=== PATIENT | female | born 1945 | race Caucasian/White ===

== ENCOUNTER → 2017-08-07 | Day surgery (SDC) | payer MEDICARE, BC ==
[2017-08-06 17:24] VITALS: BMI 26.9
[~2017-08-07] MED LIST: Diprivan 20 ML ONE; Propofol 200 MG/20 ML VIAL ONE
[2017-08-07 10:58] LABS: #Basophils 0.1 thou/uL (0.0-0.2); #Eosinphils 0.8 thou/uL (0.0-0.7); #Monocytes 0.5 thou/uL (0.11-0.59); #Neutrophils 4.7 thou/uL (1.40-6.50); %Eosinophils 9.6 % (0.0-10.0); %Lymphocytes 24.7 % (21.0-51.0); %Monocytes 5.6 % (0.0-10.0); Hematocrit 46.3 % (36.0-47.0); Mean Platelet Volume 8.3 fL (7.4-10.4); Red Blood Cell (RBC) Count 5.34 mill/uL (4.20-5.40)
[2017-08-07 11:06] LABS: PTT 33.5 SEC (22.9-36.1); Prothrombin Time 16.8 SEC (12.0-14.7)
[2017-08-07 11:32] LABS: Anion Gap 13 mmol/L (10-20); BUN (Urea Nitrogen) 13 mg/dL (9.8-20.1); Calc. Creatinine Clearance 64 mL/min (70-130); Calcium 9.9 mg/dL (7.8-10.44); Carbon Dioxide 27 mmol/L (23-31); Chloride 104 mmol/L (98-107); Estimated GFR-MDRD 60
--- NOTE | 2017-08-07 15:31 | OP ---
DATE OF PROCEDURE: 08/07/2017 CARDIOVERSION REPORT REFERRING PHYSICIAN: Dr. Adams. REASON FOR PROCEDURE: Mrs. Barreto is here with recent pulmonary venous isolation procedure on 2016. She developed atypical atrial flutter. She is undergoing a cardioversion procedure, d emonstrates no clots in the left atrial appendage. PROCEDURE: The patient received propofol for conscious sedation by Anesthesia specialist. After ad equate level of sedation achieved, a synchronized 50 joule shock promptly converted the patient back to sinus rhythm. CONCLUSION: Successful cardioversion. PLAN: Routine followup. Continue anticoagulation with Eliquis.
--- NOTE | 2017-08-07 21:11 | ECHO ---
DATE OF SERVICE: 08/07/17 REFERRING PHYSICIAN: Breanna Adams M.D. REASON FOR PROCEDURE: The patient is here with atrial flutter versus atrial fibrillation. She was set up for a MARC guided cardioversion. She had a prior pulmonary venous isolation procedure on 06/05/2017, now with recurr ent atrial flutter. She has had interrupted Eliquis and the performing MARC to rule out clots. PROCEDURE: The patient received deep sedation by Anesthesia specialist. After adequate level of sedation achie anant the standard transvenous procedure echocardiogram probe was passed into the esophagus without d ifficulty. The patient tolerated the procedure well, no complications noted. RESULTS: Left atrium is mildly enlarged. Left atrial appendage is well visualized and contains no clots. Lef t appendage velocity up to 50 cm per second. Four out of four pulmonary veins were visualized withou t stenosis. The mitral valve has mild to moderate regurgitation. The interatrial septum is free of defect. Right-sided chambers nondilated. Left ventricular systolic function is normal. LV size is normal. Wall thickness normal. The pericardial space without effusion. The aortic valve has three leaflets without regurgitation or stenosis and appears to be normal. Tricuspid valve without significant regurgitation. Visualized portion of the ascending and descendin g aorta without aneurysm, dissection or atheroma. CONCLUSION: 1. No intracardiac clots. 2. Mild to moderate MR. 3. Normal left ventricular systolic function. PLAN: Proceed with cardioversion.
== END ==
LOC: SDC 09:17
PROVIDERS: ATTEND Internal Medicine Cardiovascular Disease
DX: I48.1 Persistent atrial fibrillation (principal); I48.4 Atypical atrial flutter; E03.9 Hypothyroidism, unspecified; I10 Essential (primary) hypertension; F32.9 Major depressive disorder, single episode, unspecified; Z79.01 Long term (current) use of anticoagulants; Z79.899 Other long term (current) drug therapy; Z88.6 Allergy status to analgesic agent; Z90.89 Acquired absence of other organs; Z90.710 Acquired absence of both cervix and uterus; Z98.890 Other specified postprocedural states
CPT/HCPCS: 36415; 80048; 85025; 85610; 85730; 92960; 93005; 93010; 93312; J2704

== ENCOUNTER 2017-10-06 19:34 | Inpatient (IN) | payer MEDICARE, BC ==
[2017-10-06] MEDS ORDERED: Adenosine 6 MG/2 ML VIAL ONE ×2 (19:57)
[2017-10-06 20:04] LABS: #Basophils 0.1 thou/uL (0.0-0.2); #Eosinphils 1.3 thou/uL (0.0-0.7); #Lymphocytes 2.9 thou/uL (1.20-3.40); #Monocytes 0.5 thou/uL (0.11-0.59); #Neutrophils 4.3 thou/uL (1.40-6.50); %Basophils 1.1 % (0.0-1.0); %Monocytes 5.5 % (0.0-10.0); Mean Platelet Volume 8.4 fL (7.4-10.4); Red Blood Cell (RBC) Count 4.83 mill/uL (4.20-5.40); White Blood Cell (WBC) Count 8.9 thou/uL (4.8-10.8)
[2017-10-06] MEDS ORDERED: Diltiazem HCl 125 MG, Admixture Fee 1 EACH in Sodium Chloride 0.9% 100 ML SLOW IVP SCH (20:15)
[2017-10-06 20:22] LABS: ALT (SGPT) 12 U/L (8-55); AST (SGOT) 15 U/L (5-34); Alkaline Phosphatase 107 U/L (40-150); Anion Gap 14 mmol/L (10-20); BUN (Urea Nitrogen) 11 mg/dL (9.8-20.1); Bilirubin, Total 0.2 mg/dL (0.2-1.2); Calc. Creatinine Clearance 0 mL/min (70-130); Calcium 9.7 mg/dL (7.8-10.44); Carbon Dioxide 24 mmol/L (23-31); Chloride 108 mmol/L (98-107); Estimated GFR-MDRD 56; Globulin 3.6 g/dL (2.4-3.5); Protein, Total 8.1 g/dL (6.0-8.3)
--- NOTE | 2017-10-06 20:32 | RAD ---
CHEST ONE VIEW: History: Chest pain. Shortness of breath. Comparison: 10-26-16, 12-25-16 FINDINGS: Mild prominence of the pulmonary vasculature. No focal airspace consolidation, pneumothorax or effusi on. Mild scarring in the lung apices. Unchanged appearance of sclerosis of the left humeral neck. IMPRESSION: No acute intrathoracic abnormality. No significant change. POS: [facility]
[2017-10-06] MEDS ORDERED: Nitroglycerin 2% Ointment 1 INCH/1 GM Packet ONE (20:38)
[2017-10-06 22:17] LABS: PTT 31.9 SEC (22.9-36.1); Prothrombin Time 13.8 SEC (12.0-14.7)
--- NOTE | 2017-10-06 23:55 | PDOC.EVN ---
Event Note - Event Note Event Note: [id number] H&P Dictated 1. Chest pain 2. AFIB 3. HTN
[2017-10-07] MEDS ORDERED: Ondansetron HCl/PF 4 MG/2 ML Vial IVP PRN (00:05)
[2017-10-07] MEDS ORDERED: Sodium Chloride 0.9% 1,000 ML IV SCH (00:15)
--- NOTE | 2017-10-07 00:33 | HP ---
DATE OF ADMISSION: 10/06/2017 CHIEF COMPLAINT: Chest pain. HISTORY OF PRESENT ILLNESS: Patient is a 72-year-old female with past medical history of atrial fibr illation, hypertension, hypothyroidism, continue complaining of chest pain. Patient says she started having chest pain today, substernal tightness kind, denies any radiation. Denies any dizziness. De nies any lightheadedness. Patient said she had a cardiac ablation done on 09/17 in [place]. Chest pa in is mildly in intensity. Denies any fever, denies any chills, denies any cough. Patient took puls e at home, heart rate was around 155. Denies any nausea, denies any vomiting, denies any dizziness, denies lightheadedness. Her symptoms persisted so she came to the ER. Upon ER arrival, patient was found to be in atrial fibrillation with RVR, so patient was given IV Cardizem push and started on Car dizem drip. Patient denies any other complaints at this time. PAST MEDICAL HISTORY: As per the HPI. PAST SURGICAL HISTORY: Cardiac ablation x2, cardioversion. SOCIAL HISTORY: Denies smoking, denies alcohol, denies any drugs. FAMILY HISTORY: Denies any heart problems. MEDICATIONS: Reviewed. ALLERGIES: No known drug allergies. REVIEW OF SYSTEMS: Constitutional: Denies any fever, denies any chills. Eyes: Denies any vision p roblems. Ears: Denies any hearing loss. Neck: Denies any neck pain. Cardiovascular: Positive fo r chest pain. Respiratory: Denies any cough, denies any sputum production. Gastrointestinal: Delano es nausea, vomiting. Integumentary: Denies any rash. Musculoskeletal: Denies any joint deformities. All other review of systems are reviewed and are neg ative. PHYSICAL EXAMINATION: CONSTITUTIONAL/VITAL SIGNS: At the time of H and P performed, blood pressure is 139/75, heart rate 9 8.7, pulse oximetry 100%. GENERAL: The patient appears comfortable. HEENT: Pupils are equal, round, and reactive. Anterior nares patent. Nose normal. Ears normal. T eeth intact. Tongue is moist. NECK: Supple. No JVD. CARDIOVASCULAR: S1 and S2 present. Regular rate and rhythm. No murmurs, no rubs, no gallops. RESPIRATORY SYSTEM: No wheezing, no rhonchi. Breath sounds bilaterally. GASTROINTESTINAL: Abdomen is soft, nontender, no guarding, no organomegaly, no masses felt. GENITOURINARY: No suprapubic tenderness. INTEGUMENTARY: No rashes seen. CRANIAL NERVE SYSTEM: Cranial nerves intact. Follows commands. Strength intact. Sensory intact. LABORATORY DATA: At the time of H&P performed, white count 8.9, hemoglobin 14.3, platelet count is 3 14. PT 13.8, INR 1.1. BMP showed sodium 142, potassium 4.1, chloride 108, CO2 is 24, BUN of 7, crea tinine 1.97, calcium 9.7. ASSESSMENT AND PLAN: Patient is 72-year-old female: 1. Chest pain, need to rule out cardiac etiology. Plan to check cardiac enzymes. Plan to consult C ardiology to evaluate the patient. 2. Atrial fibrillation with rapid ventricular response. Continue Cardizem drip. Plan to consult Ca rdiology to evaluate the patient. We will monitor heart rate closely. We will check TSH and BMP and mag level in the a.m. 3. History of hypertension. Continue home blood pressure medications. 4. History of hypothyroidism. Continue Synthroid. Case was discussed in detail with the patient.
[2017-10-07 03:14] LABS: #Basophils 0.1 thou/uL (0.0-0.2); #Eosinphils 0.9 thou/uL (0.0-0.7); #Lymphocytes 2.3 thou/uL (1.20-3.40); #Monocytes 0.4 thou/uL (0.11-0.59); #Neutrophils 3.8 thou/uL (1.40-6.50); %Basophils 0.7 % (0.0-1.0); %Eosinophils 12.4 % (0.0-10.0); %Lymphocytes 30.6 % (21.0-51.0); %Monocytes 5.3 % (0.0-10.0); Mean Platelet Volume 8.2 fL (7.4-10.4); Red Blood Cell (RBC) Count 4.26 mill/uL (4.20-5.40); White Blood Cell (WBC) Count 7.4 thou/uL (4.8-10.8)
[2017-10-07 03:35] LABS: ALT (SGPT) 10 U/L (8-55); AST (SGOT) 11 U/L (5-34); Alkaline Phosphatase 83 U/L (40-150); Anion Gap 11 mmol/L (10-20); BUN (Urea Nitrogen) 12 mg/dL (9.8-20.1); Bilirubin, Total 0.2 mg/dL (0.2-1.2); Calc. Creatinine Clearance 76 mL/min (70-130); Calcium 9.1 mg/dL (7.8-10.44); Carbon Dioxide 26 mmol/L (23-31); Chloride 110 mmol/L (98-107); Estimated GFR-MDRD 70; Globulin 2.5 g/dL (2.4-3.5); Protein, Total 6.3 g/dL (6.0-8.3)
[2017-10-07 03:38] LABS: Troponin I Less than 0.010 ng/mL (< 0.028)
[2017-10-07 03:39] VITALS: BMI 28.1
[2017-10-07] MEDS: Acetaminophen 325 MG TAB PO PRN ×2 (06:00→20:33)
[2017-10-07] MEDS: Levothyroxine Sodium 150 MCG TAB PO SCH (06:00)
[2017-10-07] MEDS: Apixaban 5 MG TAB PO SCH ×2 (08:25→19:57)
[2017-10-07] MEDS: Amlodipine 5 MG TAB PO SCH (08:25)
[2017-10-07] MEDS ORDERED: Famotidine 20 MG TAB PO SCH (09:00)
--- NOTE | 2017-10-07 09:57 | PDOC.PN ---
- Subjective Encounter Start Date: 10/07/17 Encounter Start Time: 07:00 Pt seen for followup re: a. flutter/ a. fib. Feels better. Denies chest pain, nausea or vomiting. - Objective MAR Reviewed: Yes Vital Signs & Weight: Vital Signs (12 hours) Temp Pulse Resp Pulse Ox 10/07/17 08:00 97.5 F L 10/07/17 07:31 97.5 F L 96 18 97 10/07/17 00:30 98.7 F 95 18 97 10/07/17 00:10 98.7 F Weight Weight 169 lb 5.04 oz Most Recent Monitor Data Heart Rate from ECG 95 NIBP 123/78 NIBP BP-Mean 111 Respiration from ECG 17 SpO2 95 I&O: 10/06/17 10/07/17 10/08/17 06:59 06:59 06:59 Intake Total 425 225 Output Total 950 975 Balance -525 -750 Result Diagrams: 10/07/17 03:07 10/07/17 03:07 Phys Exam - Physical Examination Constitutional: NAD HEENT: PERRLA, moist MMs, sclera anicteric, oral pharynx no lesions Neck: no nodes, no JVD, supple, full ROM Respiratory: no wheezing, no rales, no rhonchi, clear to auscultation bilateral Cardiovascular: no rub, irregular S1, S2 heard Gastrointestinal: soft, non-tender, no distention, positive bowel sounds Musculoskeletal: pulses present Neurological: moves all 4 limbs Lymphatic: no nodes Psychiatric: normal affect, A&O x 3 Skin: no rash, normal turgor, cap refill <2 seconds Dx/Plan (1) Atrial flutter Code(s): I48.92 - UNSPECIFIED ATRIAL FLUTTER Status: Acute (2) HTN (hypertension) Code(s): I10 - ESSENTIAL (PRIMARY) HYPERTENSION Status: Chronic (3) Hypothyroidism Code(s): E03.9 - HYPOTHYROIDISM, UNSPECIFIED Status: Chronic Qualifiers: 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 Continue cardizem drip, await cardiology input. Continue apixaban. Monitor vital signs, titrate antihypertensives as needed. Continue thyroid replacement. Review of Systems - Review of Systems Constitutional: negative: Fever, Chills, Sweats, Weakness, Malaise Respiratory: negative: Cough, Dry, Shortness of Breath, Hemoptysis, SOB with Excertion, Pleuritic Pain, Sputum, Wheezing Cardiovascular: negative: Chest Pain, Palpitations, Orthopnea, Paroxysmal Noc. Dyspnea, Edema, Light Headedness Gastrointestinal: negative: Nausea, Vomiting, Abdominal Pain, Diarrhea, Constipation, Melena, Hematochezia Genitourinary: negative: Dysuria, Frequency, Incontinence, Hematuria, Retention - Medications/Allergies Allergies/Adverse Reactions: Allergies Allergy/AdvReac Type Severity Reaction Status Date / Time aspirin AdvReac Severe Anaphylaxis Verified 10/07/17 00:39 almond AdvReac Verified 10/07/17 00:39 peanut AdvReac Verified 10/07/17 00:39 Medications: Current Medications Acetaminophen (Tylenol) 650 mg PO Q4H PRN PRN Reason: Headache/Fever or Pain Last Admin: 10/07/17 06:00 Dose: 650 mg Amlodipine Besylate (Norvasc) 5 mg PO DAILY [facility] Last Admin: 10/07/17 08:25 Dose: 5 mg Apixaban (Eliquis) 5 mg PO BID [facility] Last Admin: 10/07/17 08:25 Dose: 5 mg Famotidine (Pepcid) 20 mg PO Q12HR [facility] Last Admin: 10/07/17 08:25 Dose: 20 mg Diltiazem HCl 125 mg/ Sodium (Chloride) 125 mls @ 5 mls/hr IVPB INF VICENTE; 5 MG/ HR PRN Reason: Protocol Sodium Chloride (Normal Saline 0.9%) 1,000 mls @ 75 mls/hr IV .[id number] [facility] Last Admin: 10/07/17 01:38 Dose: 1,000 mls Levothyroxine Sodium (Synthroid) 150 mcg PO 0600 [facility] Last Admin: 10/07/17 06:00 Dose: 150 mcg Ondansetron HCl (Zofran) 4 mg IVP Q6H PRN PRN Reason: Nausea/Vomiting
[2017-10-07] MEDS ORDERED: Furosemide 20 MG/2 ML VIAL SLOW IVP SCH (10:30)
--- NOTE | 2017-10-07 10:53 | CON ---
DATE OF CONSULTATION: 10/07/2017 SERVICE: Pulmonary Medicine REASON FOR CONSULTATION: Respiratory failure. HISTORY OF PRESENT ILLNESS: The patient is a 72-year-old white female with past medical history sign ificant for paroxysmal atrial fibrillation. She has had 2 separate ablations. She knows when her sy mptoms come on. She had abrupt onset of symptoms when she was at home with shortness of breath and c hest discomfort. She presented to the Emergency Department and was found to be in atrial fibrillatio n with RVR. After establishing rate control, her chest pain and difficulty breathing resolved. She currently denies any fevers, chills, nausea, vomiting, shortness of breath or chest discomfort. She did have wheezing. This was worked up previously and she does not have any COPD. This is more cardi ac wheeze associated with a little bit of volume overload. Otherwise, she has returned to her usual state of health overnight. She is on diltiazem drip and she has actually returned to a regular rhyth m. PAST MEDICAL HISTORY: 1. Paroxysmal atrial fibrillation. 2. Hypertension. 3. Dyslipidemia. 4. Hypothyroidism. PAST SURGICAL HISTORY: 1. Cardiac ablation x2. 2. Cardioversion. SOCIAL HISTORY: Negative for alcohol, tobacco or illicit drug use. She denies any exposure to chemi cals, asbestos or tuberculosis. FAMILY HISTORY: Noncontributory. ALLERGIES: No known drug allergies. MEDICATIONS LIST: A list of her inpatient medications were reviewed. No specific updates were made at this time. REVIEW OF SYSTEMS: General, head, ears, eyes, nose, throat, cardiovascular, respiratory, GI, , mus culoskeletal, neurologic and skin is negative except as mentioned in the HPI. PHYSICAL EXAMINATION: VITAL SIGNS: Afebrile, pulse 97, blood pressure 141/89, respirations 17, saturation 95% on room air. GENERAL: The patient is awake, alert, in no apparent distress. LUNGS: Excellent air entry. The dependent expiratory wheezing is present. I also hear some very fi ne crackles. HEART: Normal rate. Regular at this time. ABDOMEN: Soft, nontender, nondistended, bowel sounds positive. MUSCULOSKELETAL: No cyanosis or clubbing. There is trace pitting in the bilateral lower extremities . NEUROLOGIC: Grossly nonfocal. LABORATORY: WBC 7.4, hemoglobin 12.3, platelets 262,000. INR 1.1. Basic metabolic profile, liver f unction studies are unremarkable. Cardiac enzymes are negative x3. IMAGING: Chest x-ray demonstrates no acute cardiopulmonary abnormality. There is no significant marvin nge compared to prior. ASSESSMENT: 1. Atrial fibrillation with rapid ventricular response, currently returned to normal sinus rhythm. 2. History of hypothyroidism. 3. Chest pain, resolved. PLAN: I will repeat a TSH in the morning. At this point, she is stable for transition out of the IC U to the telemetry unit. Pulmonary Critical Care will continue to follow. She needs no further inve stigation for any possible underlying lung issues. She has previously been worked up for COPD, but s he does not have this. Her wheeze is a function of her underlying heart issues.
--- NOTE | 2017-10-07 12:35 | CON ---
DATE OF CONSULTATION: 10/07/2017 HISTORY OF PRESENT ILLNESS: This is a pleasant 72-year-old woman with a history of paroxysmal atrial fibrillation who presented with rapid palpitations and chest discomfort. The patient has a long history of atrial fibrillation. She has previously undergone 2 ablations for atrial fibrillation and the last approximately a month ago. The patient has a history of being on antiarrhythmic therapy and has been on Multaq, but had difficulty with this medication. She was in her usual state of health when she developed palpitations and left-sided chest discomfort. The patient came to the emergency room for further evaluation. The patient denies having any present chest discomfort. PAST MEDICAL HISTORY: 1. Atrial fibrillation. 2. Hypertension. 3. Pseudogout. 4. Thyroid disorder. PAST SURGICAL HISTORY: Tonsillectomy and hysterectomy. SOCIAL HISTORY: She is a former smoker. MEDICATIONS: Amlodipine 5 daily, primidone 100 b.i.d., Protonix 40 daily, Synthroid 150 mcg daily, diltiazem 120 daily, and apixaban 5 b.i.d. SOCIAL HISTORY: Former smoker. ALLERGIES: ASPIRIN and NUTS. FAMILY HISTORY: Positive family history of heart disease. REVIEW OF SYSTEMS: Ten-point system otherwise unremarkable. No history of easy bruising or bleeding. PHYSICAL EXAMINATION: GENERAL: Well-developed woman in no acute distress with a blood pressure of 141 /89. NECK: No jugular venous distention, no carotid bruits. LUNGS: Clear to auscultation. HEART: Regular rate and rhythm, normal S1, S2, no murmurs. ABDOMEN: Nondistended. EXTREMITIES: No edema. SKIN: Warm and dry. NEUROLOGIC: Nonfocal. VASCULAR: Radial pulses 2+. LABORATORY RESULTS: White blood count 7.4, hemoglobin 12.3, hematocrit 37.0, platelets 262. Sodium is 143, potassium 3.9, chloride 110, bicarbonate 26, BUN 12, creatinine 0.8, glucose 107. IMAGING: EKG revealed atrial fibrillation with a nonspecific ST-T wave abnormality. IMPRESSION: 1. Chest pain. 2. History of paroxysmal atrial fibrillation. 3. Hypertension. 4. Chronic obstructive pulmonary disease. 5. Thyroid disorder. This patient presents for recurrent atrial fibrillation and chest pain. The patient's cardiac enzymes reveal no evidence of myocardial infarction. We would recommend the patient be placed on flecainide. She has tolerated this medication previously. PLAN: 1. Restart flecainide 50 b.i.d. 2. Followup with [facility]. RAHAT
[2017-10-08] MEDS: Levothyroxine Sodium 150 MCG TAB PO SCH (05:33)
--- NOTE | 2017-10-08 09:17 | PDOC.CTH ---
<Rere Joy - Last Filed: 10/08/17 09:24> Cardiology Progress Note - Subjective the pt seen and examined. No overnight events. No cardiac complaints. She had 1 episode of mild discomfort at epigastolic area after she had fried food last night. She still complains of intermittent SOB with cough - Objective Vital Signs Temp Pulse Resp BP Pulse Ox 10/08/17 08:20 97.8 F 95 20 146/76 H 92 L 10/08/17 04:00 97.9 F 81 18 116/69 95 Weight 164 lb 8 oz 10/07/17 10/08/17 10/09/17 06:59 06:59 06:59 Intake Total 425 1987.5 Output Total 950 1975 Balance -525 12.5 - Physical Examination General/Neuro: alert & oriented x3 Neck: no JVD present Lungs: other: (exp. wheezing) Heart: other: (irregular) Abdomen: soft Extremities: other: (No edema) - Telemetry Telemetry Rhythm: Aflutter HR 100-120s - Labs Result Diagrams: 10/07/17 03:07 10/07/17 03:07 Troponin/CKMB CK-MB (CK-2) 1.0 ng/mL (0-6.6) 10/06/17 19:54 Troponin I Less than 0.010 ng/mL (< 0.028) 10/07/17 03:07 - Assessment/Plan 1. Atrial flutter - HR has been 100-120s; Increase Diltiazem from 120mg to 180mg daily with Flecainide and Eliquis BID; Requesting EP consult; cont. monitor on tele 2. HTN - stable with current medication; cont. monitor 3. COPD - Still with Exp. wheezing and complains of SOB and cough; Lasix 20mg IV x1 now 4. 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 - On thyroid medication; managed by PCP MAR reviewed Review of Systems - Review of Systems Constitutional: reports: no symptoms reported EENTM: reports: no symptoms reported Respiratory: reports: no symptoms reported Cardiac (ROS): reports: no symptoms reported ABD/GI: reports: no symptoms reported : reports: no symptoms reported Musculoskeletal: reports: no symptoms reported Skin: reports: no symptoms reported <Reza Adams - Last Filed: 10/08/17 11:58> Cardiology Progress Note - Objective Vital Signs Temp Pulse Resp BP Pulse Ox 10/08/17 09:26 95 10/08/17 08:20 97.8 F 95 20 146/76 H 92 L 10/08/17 08:00 97.8 F 95 20 92 L 10/08/17 04:00 97.9 F 81 18 116/69 95 Weight 164 lb 8 oz 10/07/17 10/08/17 10/09/17 06:59 06:59 06:59 Intake Total 425 1987.5 Output Total 950 1975 Balance -525 12.5 - Labs Result Diagrams: 10/07/17 03:07 10/07/17 03:07 Troponin/CKMB CK-MB (CK-2) 1.0 ng/mL (0-6.6) 10/06/17 19:54 Troponin I Less than 0.010 ng/mL (< 0.028) 10/07/17 03:07 - Assessment/Plan Pt. seen and evaluated. She remains in atrial fibrillation this AM. She may convert to NSR after several doses of Flecainide, if not may consider cardioversion. I agree with the assessment by the BUILDING MAINTENANCE CUSTODIAN and the medication changes. she is requesting consultation with EP. Her last ablation was about 3 weeks ago and there is ofter some breakthrough of the afib. for a while afterwards.
[2017-10-08] MEDS: Amlodipine 5 MG TAB PO SCH (09:26)
[2017-10-08] MEDS: Apixaban 5 MG TAB PO SCH ×2 (09:26→20:05)
[2017-10-08] MEDS ORDERED: Furosemide 20 MG/2 ML VIAL SLOW IVP SCH ×2 (09:30→10:00)
--- NOTE | 2017-10-08 11:09 | PDOC.PN ---
- Subjective Encounter Start Date: 10/08/17 Encounter Start Time: 08:20 - Objective MAR Reviewed: Yes Vital Signs & Weight: Vital Signs (12 hours) Temp Pulse Resp BP Pulse Ox 10/08/17 09:26 95 10/08/17 08:20 97.8 F 95 20 146/76 H 92 L 10/08/17 04:00 97.9 F 81 18 116/69 95 Weight Weight 164 lb 8 oz Most Recent Monitor Data Heart Rate from ECG 94 NIBP 136/78 NIBP BP-Mean 108 Respiration from ECG 20 SpO2 96 I&O: 10/07/17 10/08/17 10/09/17 06:59 06:59 06:59 Intake Total 425 1987.5 Output Total 950 1975 Balance -525 12.5 Result Diagrams: 10/07/17 03:07 10/07/17 03:07 EKG Reviewed by me: Yes (Tele: harmony fib/flutter) Phys Exam - Physical Examination Constitutional: NAD HEENT: moist MMs Neck: supple Respiratory: clear to auscultation bilateral Cardiovascular: irregular Gastrointestinal: soft, non-tender Neurological: moves all 4 limbs Psychiatric: normal affect Skin: no rash Dx/Plan (1) Atrial flutter Code(s): I48.92 - UNSPECIFIED ATRIAL FLUTTER Status: Acute (2) HTN (hypertension) Code(s): I10 - ESSENTIAL (PRIMARY) HYPERTENSION Status: Chronic (3) Hypothyroidism Code(s): E03.9 - HYPOTHYROIDISM, UNSPECIFIED Status: Chronic Qualifiers: 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 Pt has been started on Flecainide. Continue to monitor on telemetry. Awaiting EP service input. Continue synthroid. Review of Systems - Review of Systems Constitutional: negative: Fever, Chills, Sweats, Weakness, Malaise Respiratory: negative: Cough, Dry, Shortness of Breath, Hemoptysis, SOB with Excertion, Pleuritic Pain, Sputum, Wheezing Cardiovascular: negative: Chest Pain, Palpitations, Orthopnea, Paroxysmal Noc. Dyspnea, Edema, Light Headedness, Other - Medications/Allergies Allergies/Adverse Reactions: Allergies Allergy/AdvReac Type Severity Reaction Status Date / Time aspirin AdvReac Severe Anaphylaxis Verified 10/07/17 00:39 almond AdvReac Verified 10/07/17 00:39 peanut AdvReac Verified 10/07/17 00:39 Medications: Current Medications Acetaminophen (Tylenol) 650 mg PO Q4H PRN PRN Reason: Headache/Fever or Pain Last Admin: 10/07/17 20:33 Dose: 650 mg Amlodipine Besylate (Norvasc) 5 mg PO DAILY [facility] Last Admin: 10/08/17 09:26 Dose: 5 mg Apixaban (Eliquis) 5 mg PO BID [facility] Last Admin: 10/08/17 09:26 Dose: 5 mg Diltiazem HCl (Cardizem Cd) 180 mg PO DAILY [facility] Diltiazem HCl (Cardizem Cd) 180 mg PO 1000 [facility] Stop: 10/08/17 12:00 Last Admin: 10/08/17 10:22 Dose: 180 mg Flecainide Acetate (Tambocor) 50 mg PO Q12HR [facility] Last Admin: 10/08/17 09:26 Dose: 50 mg Furosemide (Lasix) 20 mg SLOW IVP 1000 [facility] Stop: 10/08/17 12:00 Last Admin: 10/08/17 10:25 Dose: 20 mg Diltiazem HCl 125 mg/ Sodium (Chloride) 125 mls @ 5 mls/hr IVPB INF VICENTE; 5 MG/ HR PRN Reason: Protocol Levothyroxine Sodium (Synthroid) 150 mcg PO 0600 [facility] Last Admin: 10/08/17 05:33 Dose: 150 mcg Ondansetron HCl (Zofran) 4 mg IVP Q6H PRN PRN Reason: Nausea/Vomiting
--- NOTE | 2017-10-08 17:02 | PRG ---
DATE OF SERVICE: 10/08/2017 SERVICE: Pulmonary Medicine. INTERVAL HISTORY: The patient is doing great from a respiratory standpoint. She denies any current fevers, chills, shortness of breath or chest discomfort. She does not have any palpitations, but rem ains in an irregular rhythm. Otherwise, she has no specific complaints today. PHYSICAL EXAMINATION: VITAL SIGNS: Afebrile, pulse 111, blood pressure 112/70, respirations 20, saturation 92% on room air . GENERAL: Patient is awake, alert, in no apparent distress. LUNGS: Excellent air entry. Minimal dependent crackles are present. There is no prolonged expirato ry phase or wheezing any longer. HEART: Tachycardic. Regular. ABDOMEN: Soft, nontender, nondistended. Bowel sounds positive. MUSCULOSKELETAL: No cyanosis or clubbing. No pitting in the bilateral lower extremities. NEUROLOGIC: Grossly nonfocal. ASSESSMENT: 1. Chest pain, resolved. 2. Atrial fibrillation with rapid ventricular response, currently under better rate control. PLAN: Actually, there is no further requirements for inpatient Pulmonary or Critical Care opinion. If she decompensates clinically, please give me a phone call. My understanding is she is in line for a cardioversion tomorrow.
--- NOTE | 2017-10-08 23:06 | CON ---
ELECTROPHYSIOLOGY CONSULTATION REPORT DATE OF CONSULTATION: 10/08/2017 REFERRING PHYSICIAN: Dr. Taylor. I am seeing Ms. 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 Her problems are: 1. Recurrent atrial arrhythmias. A. History of persistent atrial fibrillation, prompting a pulmonary venous isolation procedure inclu ding posterior wall, coronary sinus and cavotricuspid isthmus ablation in 06/05/2017. B. Due to recurrence of atrial flutter, a redo pulmonary venous isolation procedure was performed in 09/11/2017. 2. Chronic anticoagulation with Eliquis. 3. History of structurally normal heart. 4. History of hypertension. ALLERGIES: ASPIRIN, ALMONDS and PEANUTS. MEDICATIONS AT HOME: Included cholecalciferol, apixaban, amlodipine, levothyroxine, primidone, dilti azem and pantoprazole. SUBJECTIVE: Ms. Coleman is returning with palpitations and chest discomfort sensations. She noted so me rapid heart rates in the last week. Eventually, heart rate reached the 155 beats per minute and s he did have some chest tightness as well. She was found to be in atrial arrhythmia with RVR, IV dilt iazem was started and she was feeling better since then. Currently, denies angina, PND or orthopnea. No stroke-like symptoms. No bleeding issues. No fever, chills or cough. No diarrhea and the rest of the 12-point review of systems are otherwise, unremarkable. PAST MEDICAL HISTORY: As above. SOCIAL HISTORY: The patient denies smoking, EtOH or drug use. FAMILY HISTORY: Noncontributory. OBJECTIVE DATA: VITAL SIGNS: Blood pressure is 146/76, heart rate 95, respirations 20 and temperature 97.8 degrees F ahrenheit. GENERAL: This is an alert and oriented woman in no apparent distress. NECK: Supple. Jugular veins are not distended. CHEST: Coarse. No crackles. CARDIAC: Heart sounds are irregularly irregular. S1 and S2 are variable. No murmur or gallop. ABDOMEN: Benign. Bowel sounds are positive. EXTREMITIES: Lower extremities without edema, clubbing or cyanosis. DATABASE: EKGs reviewed reveals atrial flutter, which is atypical, likely non-isthmus dependent with variable AV conduction, rate of 102 beats per minute. Subsequent EKGs reveal more controlled ventri cular rates. LABORATORY DATA: White count 7.4, hemoglobin 12.3 and platelet count is 1262. INR 1.1, sodium 143, potassium 3.9, BUN is 12 and creatinine is 0.8. TSH is 0.48. ASSESSMENT AND PLAN: Ms. Barreto is a pleasant 72-year-old woman with prior history of atrial arrhythm ias. She has had 2 ablations, most recently earlier this month about 3 weeks ago. She is now back w ith rapid rates. IV diltiazem seems to be controlling her better. Her symptoms resolved, but she co ntinues in atypical atrial flutter with variable AV conduction. Currently, she is early on after her second ablation. I agree with the initiated flecainide and afte r a couple of doses, we could attempt repeated cardioversion. She might also need increased AV jake blocking agents if tolerated, hence the chance of recurrence. 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 I am hoping that this early arrhythmia will not be sustained. She was set up for cardioversion tomorrow. Risks and benefits detailed. She has been without interr uption on her Eliquis. Her stroke is relatively low. Thank you again for allowing me to participate in the care of this patient.
[2017-10-09 04:50] LABS: Hematocrit 38.6 % (36.0-47.0)
[2017-10-09] MEDS: Levothyroxine Sodium 150 MCG TAB PO SCH ×2 (05:48→10:18)
[2017-10-09] MEDS ORDERED: Diprivan 20 ML ONE (07:22)
--- NOTE | 2017-10-09 09:04 | PDOC.PN ---
- Subjective Encounter Start Date: 10/09/17 Encounter Start Time: 09:03 -: old records requested/rev Pt seen and exmained, chart reviewed in its entirety. Pt to [facility] programmer early this AM for EP study and DC DV with Dr Nelson. No CP overnight, no acyute events and no new complaints specifically denid CP, no N/V, no F/C, no cough or sputum production. 10 point ROS performed and neg for all except as per HPI above - Objective Resuscitation Status: FULL MAR Reviewed: Yes Vital Signs & Weight: Vital Signs (12 hours) Temp Pulse Resp BP Pulse Ox 10/09/17 04:00 97.8 F 77 18 125/65 96 10/08/17 21:46 111 H Weight Weight 164 lb 3.2 oz Most Recent Monitor Data Heart Rate from ECG 94 NIBP 136/78 NIBP BP-Mean 108 Respiration from ECG 20 SpO2 96 I&O: 10/08/17 10/09/17 10/10/17 06:59 06:59 06:59 Intake Total 1987.5 1090 Output Total 1975 1900 Balance 12.5 -810 Result Diagrams: 10/09/17 04:29 10/09/17 04:29 Radiology Reviewed by me: Yes EKG Reviewed by me: Yes Phys Exam - Physical Examination Constitutional: NAD HEENT: PERRLA, moist MMs, sclera anicteric, oral pharynx no lesions Neck: no nodes, no JVD, supple, full ROM Respiratory: no wheezing, no rales, no rhonchi, clear to auscultation bilateral Cardiovascular: no significant murmur, no rub, irregular Gastrointestinal: soft, non-tender, no distention, positive bowel sounds Musculoskeletal: pulses present, edema present Neurological: non-focal, normal sensation, moves all 4 limbs Lymphatic: no nodes Psychiatric: normal affect, A&O x 3 Skin: no rash, normal turgor, cap refill <2 seconds Dx/Plan (1) Atrial flutter Code(s): I48.92 - UNSPECIFIED ATRIAL FLUTTER Status: Chronic Comment: persistent. Had ablation a few weeks ago, and now already back in fib.flutter. for DC CV today. Flecainide. 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
--- NOTE | 2017-10-09 10:13 | OP ---
DATE OF PROCEDURE: 10/09/2017 REFERRING PHYSICIAN: Dr. Barriga and Dr. Taylor. Ms. Barreto is a 72-year-old female with a history of persistent atrial fibrillation. She underwent re do pulmonary venous isolation and left atrial ablation on 09/17/2017 with recurrence of antiarrhythmi c medication. On the other hand, she has been brought anticoagulated and here for cardioversion. PROCEDURE: The patient received propofol per Anesthesia specialist. After adequate level of sedatio n achieved, a synchronized 50 joule shock promptly converted the patient back to sinus rhythm. CONCLUSION: Successful cardioversion. PLAN: Continue flecainide and anticoagulation. Routine followup in the office.
[2017-10-09] MEDS: Apixaban 5 MG TAB PO SCH (10:18)
[2017-10-09] MEDS: Amlodipine 5 MG TAB PO SCH (10:18)
--- NOTE | 2017-10-09 11:25 | DIS ---
DATE OF ADMISSION: 10/06/2017 DATE OF DISCHARGE: 10/09/2017 DISCHARGE DIAGNOSES: 1. Recurrent atrial fibrillation/flutter, persistent. 2. Status post discontinue cardioversion. 3. Hypothyroidism. 4. Essential hypertension. CONSULTATIONS: 1. Electrophysiology, Dr. Nelson on 10/08/2017. 2. Cardiology, Dr. Taylor on 10/07/2017. PROCEDURES: Discontinue cardioversion on 10/09/2017. HISTORY AND PHYSICAL: Ms. Barreto is a 72-year-old white female with history of atrial fibrillation, p ersistent who has been now status post 2 ablations, last a few weeks ago. She presented with palpita tions and was found to be back in atrial fibrillation. [facility] HOSPITAL COURSE: The patient was seen and examined and admitted to the hospital by Dr. Barriga just before midnight on 10/06/2017. She was started on diltiazem, with a good rate control and Cardiology was consulted. The patient was seen by Cardiology on 10/07/2017. I recommended Electrophysiology consultation Dr. Ashley omer was called. The patient remained stable and rate controlled, and started on flecainide 50 mg p.o. b.i.d. Overnight, the patient did well and on 10/08/[address] Nelson. He agreed with the flecainid e, and schedule the patient for discontinue cardioversion today. 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 She did well and tolerated the procedure well and was cleared for discharge post-cardioversion. PHYSICAL EXAMINATION: The patient was seen and examined on the day of discharge. Discharge plan and disposition was discussed with the patient and her face to face at the bedside. DISCHARGE MEDICATIONS: 1. Flecainide 50 mg p.o. b.i.d., prescription for 60 tablets with 2 refills sent. 2. Amlodipine 5 mg daily. 3. Eliquis 5 mg p.o. b.i.d. 4. Vitamin D3 of 5000 units p.o. daily. 5. Cartia XT 120 mg p.o. daily. 6. Levothyroxine 150 mcg daily. 7. Protonix 40 mg daily. 8. Primidone 100 mg p.o. b.i.d. FOLLOWUP APPOINTMENTS 1. Dr. Gonzalez within a week. 2. Dr. Nelson as scheduled. She has an appointment on 11/05/2017. DISCHARGE DIET: Heart healthy. DISCHARGE ACTIVITY: Per cardiopulmonary limits. DISPOSITION: The patient will be discharged home with via private vehicle. INSTRUCTIONS: Return to the emergency department or call Dr. Nelson's office for recurrent palpitation s.
[2017-10-09 11:51] VITALS: BP 149/76; TEMP 97.5
--- NOTE | 2017-10-09 13:46 | PDOC.CTH ---
Cardiology Progress Note - Subjective The pt was seen and examined. No overnight events. No cardiac complaints. She slept well last night. Denied SOB, palpitation, or fluttering - Objective Vital Signs Temp Pulse Resp BP Pulse Ox 10/09/17 09:52 97.5 F L 74 18 149/76 H 95 10/09/17 08:00 97.5 F L 74 18 94 L 10/09/17 04:00 97.8 F 77 18 125/65 96 Weight 164 lb 3.2 oz 10/08/17 10/09/17 10/10/17 06:59 06:59 06:59 Intake Total 1987.5 1090 Output Total 1975 1900 Balance 12.5 -810 - Physical Examination General/Neuro: alert & oriented x3 Neck: no JVD present Lungs: CTA Heart: other: (Irregular) Abdomen: soft Extremities: other: (No edemas) - Telemetry Telemetry Rhythm: Aflutter 70s - Labs Result Diagrams: 10/09/17 04:29 10/09/17 04:29 Troponin/CKMB CK-MB (CK-2) 1.0 ng/mL (0-6.6) 10/06/17 19:54 Troponin I Less than 0.010 ng/mL (< 0.028) 10/07/17 03:07 - Assessment/Plan 1. Atrial flutter - Remain Aflutter with HR 70s with current medication; 2. HTN - stable with current medication; cont. monitor 3. COPD - No distressed with RA 4. 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 Thank you very much for cardiology consult request. Review of Systems - Review of Systems Constitutional: reports: no symptoms reported EENTM: reports: no symptoms reported Respiratory: reports: no symptoms reported Cardiac (ROS): reports: no symptoms reported ABD/GI: reports: no symptoms reported : reports: no symptoms reported Musculoskeletal: reports: no symptoms reported
[2017-10-09] MEDS ORDERED: Propofol 200 MG/20 ML VIAL ONE (16:15)
== END 2017-10-09 13:13 | disposition home or self-care (01) | DRG 310 ==
LOC: ERS 19:34 → CCU 21:56 → 2NO 10-07 15:03
PROVIDERS: ADMIT Internal Medicine; ATTEND Internal Medicine
PROC: 5A2204Z Restoration of Cardiac Rhythm, Single (ICD-10-PCS; principal; 2017-10-09)
DX: I48.1 Persistent atrial fibrillation (principal); N18.3 Chronic kidney disease, stage 3 (moderate); I12.9 Hypertensive chronic kidney disease with stage 1 through stage 4 chronic kidney disease, or unspecified chronic kidney disease; E03.9 Hypothyroidism, unspecified; I48.4 Atypical atrial flutter; Z79.01 Long term (current) use of anticoagulants; Z87.891 Personal history of nicotine dependence; I48.0 Paroxysmal atrial fibrillation; E78.5 Hyperlipidemia, unspecified; Z86.39 Personal history of other endocrine, nutritional and metabolic disease
CPT/HCPCS: 36415; 71010; 80053; 82553; 82565; 84443; 84484; 85014; 85018; 85025; 85049; 85610; 85730; 92960; 93005; 96365; 96366; 96375; 96376; J0153; J1940; J2704; J7050

== ENCOUNTER 2018-11-17 13:01 | Outpatient (CLI) | payer MEDICARE, BC ==
--- NOTE | 2018-11-17 14:18 | RAD ---
CHEST 2 VIEWS: Date: 11/17/18 HISTORY: Dyspnea. COMPARISON: Radiograph dated 11/20/17. FINDINGS: Lungs are clear. No pneumothorax or effusion. Cardiac silhouette and mediastinal contours are similar . No acute osseous abnormality. IMPRESSION: No acute intrathoracic abnormality. POS: [facility]
== END 2018-11-17 13:02 | disposition home or self-care (01) ==
LOC: RAD 13:01
PROVIDERS: ATTEND Internal Medicine Critical Care Medicine
DX: R06.00 Dyspnea, unspecified (principal)
CPT/HCPCS: 71046

== ENCOUNTER 2019-01-07 14:53 | Outpatient (CLI) | payer MEDICARE, BC ==
--- NOTE | 2019-01-07 15:09 | RAD ---
TWO VIEWS CHEST: Comparison: 11-17-18 History: Shortness of breath on exertion. FINDINGS: Two views of the chest show normal sized cardiomediastinal silhouette. There is no evidence of consol idation, mass, or pleural effusion. The bones are unremarkable. IMPRESSION: No evidence of acute cardiopulmonary disease. POS: [facility]
== END 2019-01-07 14:54 | disposition home or self-care (01) ==
LOC: RAD 14:53
PROVIDERS: ATTEND Nurse Practitioner
DX: R06.02 Shortness of breath (principal)
CPT/HCPCS: 71046

== ENCOUNTER 2019-01-21 09:45 | Observation (INO) | payer MEDICARE, BC ==
--- NOTE | 2019-01-21 10:14 | RAD ---
CHEST 1 VIEW: Date: 01/21/19 HISTORY: Chest pain. COMPARISON: 10/06/17 exam. FINDINGS: Heart size is within normal limits. There are atherosclerotic changes of the aorta. The lungs are yakelin ar of any infiltrative process. IMPRESSION: No active intrathoracic disease. POS: [facility]
[2019-01-21 10:23] LABS: #Basophils 0.1 thou/uL (0.0-0.2); #Eosinphils 0.4 thou/uL (0.0-0.7); #Lymphocytes 4.4 thou/uL (1.20-3.40); #Monocytes 0.7 thou/uL (0.11-0.59); %Basophils 1.1 % (0.0-1.0); %Eosinophils 4.1 % (0.0-10.0); %Lymphocytes 41.2 % (21.0-51.0); %Monocytes 6.7 % (0.0-10.0); %Neutrophils 46.8 % (42.0-75.0); Hemoglobin 13.8 g/dL (12.0-16.0); Mean Corpuscular HGB CONC 32.1 g/dL (32.0-36.0); Mean Corpuscular Hemoglobin 26.8 pg (27.0-31.0); Mean Corpuscular Volume 83.5 fL (78.0-98.0); Mean Platelet Volume 8.3 fL (7.4-10.4); Platelet Count 370 thou/uL (130-400); RBC Distribution Width 12.9 % (11.5-14.5); Red Blood Cell (RBC) Count 5.13 mill/uL (4.20-5.40); White Blood Cell (WBC) Count 10.7 thou/uL (4.8-10.8)
[2019-01-21 10:49] LABS: ALT (SGPT) 12 U/L (8-55); AST (SGOT) 11 U/L (5-34); Albumin 4.4 g/dL (3.4-4.8); Alkaline Phosphatase 109 U/L (40-150); Anion Gap 15 mmol/L (10-20); BUN (Urea Nitrogen) 28 mg/dL (9.8-20.1); Bilirubin, Total 0.3 mg/dL (0.2-1.2); Calc. Creatinine Clearance 0 mL/min (70-130); Calcium 10.4 mg/dL (7.8-10.44); Carbon Dioxide 19 mmol/L (23-31); Chloride 111 mmol/L (98-107); Estimated GFR-MDRD 44; Globulin 2.6 g/dL (2.4-3.5); Glucose 104 mg/dL (83-110); Lipase 19 U/L (8-78); Potassium 3.3 mmol/L (3.5-5.1); Sodium 142 mmol/L (136-145)
[2019-01-21] MEDS ORDERED: Magnesium 2 GM/50 ML BAG (IN WATER) ONE (11:02)
[2019-01-21] MEDS ORDERED: Potassium Chloride 20 MEQ TAB ONE (11:02)
[2019-01-21 13:39] LABS: Troponin I Less than 0.010 ng/mL (< 0.028)
[2019-01-21] MEDS ORDERED: Ondansetron PF 4 MG/2 ML Vial IVP PRN (14:25)
[2019-01-21] MEDS ORDERED: Acetaminophen 325 MG TAB PO PRN (14:25)
[2019-01-21] MEDS ORDERED: hydrALAZINE 20 MG/ML VIAL SLOW IVP PRN (14:29)
[2019-01-21] MEDS ORDERED: ALPRAZolam 0.25 MG TAB PO PRN (14:32)
[2019-01-21 16:57] LABS: Troponin I Less than 0.010 ng/mL (< 0.028)
--- NOTE | 2019-01-21 18:44 | CON ---
DATE OF CONSULTATION: 01/21/2019 REFERRING PHYSICIAN: Amber Vu PA-C REASON FOR CONSULTATION: Atrial flutter. HISTORY OF PRESENT ILLNESS: Ms. Barreto is a very pleasant 73-year-old woman, well known to our practice for history of recurrent atrial arrhythmias. She underwent PVAI with Dr. Kimbrough on 06/05/2017. At that time, she required isolation of the pulmonary veins, posterior wall, and electrograms of the left atrium. She also underwent cavotricuspid isthmus flutter ablation for typical atrial flutter at that time. She had late recurrence arrhythmias and required cardioversion in July of 2017. She underwent a redo ablation for further recurrences on 09/17/2017. In between ablation, she was transiently on flecainide 50 mg b.i.d. and tolerated this well without any QRS prolongation. In the past, records also indicate that she was on Multaq, although this was some time ago. She had a normal stress test in 2016. She was last seen by our clinic in June of 2018. At that point, since her most recent ablation, she had not had any documented or suspected recurrences and had worn a 7-day monitor showing no recurrent arrhythmias. At that time, she was cleared to transition off Eliquis to Plavix for stroke prophylaxis. Hence, her aspirin allergy. She actually just switched from aspirin to Plavix this month. Ms. Barreto was recently in [place] when she began to experience heart racing and palpitations, which have become progressive and more persistent. She has some atypical chest pain associated with her heart racing and palpitations. The chest pain she describes is severe and like a light switch on, last for moments and then stops. This is not reproducible. This is not seen with exertion and is not alleviated by rest. It is as mentioned non-predictable. She recently saw Dr. Adams with concerns for this chest pain. At that appointment, Dr. Adams placed her back on Eliquis 5 mg b.i.d. and recommended she follow up with our practice. She was found to be in atypical atrial flutter. She was scheduled for later this week, but felt so poorly with shortness of breath and low energy levels that we ultimately recommended she go to the emergency room for evaluation. She continues to feel short of breath with occasional heart racing and palpitations. She currently denies chest pain, pressure, syncope, near syncope, stroke, or stroke-like symptoms. Her most pressing complaint is her shortness of breath and dyspnea on exertion. REVIEW OF SYSTEMS: A 12-point review of systems is conducted, is negative except that listed above in the HPI. PAST MEDICAL HISTORY: 1. Persistent atrial fibrillation, status post PVAI and CTI ablation on 01/06/2017 with late recurrent atypical flutter requiring cardioversion on 08/07/2017, transient flecainide use before redo ablation on 09/17/2017. 2. Hypothyroidism. 3. Hypertension. 4. Structurally normal heart, normal ejection fraction. 5. Negative stress test in 2017. ALLERGIES: INCLUDE ASPIRIN. HOME MEDICATIONS: 1. Amlodipine 5 mg p.o. daily. 2. Diltiazem 120 mg p.o. daily. 3. Synthroid 150 mcg daily. 4. Topiramate 50 mg daily. 5. Eliquis 5 mg p.o. b.i.d. 6. Pantoprazole 40 mg daily. 7. Vitamin D daily. 8. Escitalopram 10 mg daily. FAMILY HISTORY: Noncontributory. SOCIAL HISTORY: Retired, strong family support. Negative for alcohol, tobacco, or illicit drug use. OBJECTIVE: VITAL SIGNS: Recent vital signs available in the ER chart for review, 148/88, pulse 108, temp 98.5, respirations 16, 96% on room air. GENERAL: The patient is alert and oriented. Speech is clear. Affect is appropriate. She is in no apparent distress. She is sitting upright during the exam. HEENT: She is normocephalic and atraumatic. Sclerae anicteric. EOMs are intact. Oral mucosa is moist and pink with adequate dentition. NECK: Supple without jugular venous distention. HEART: Rate is regularly regular, but somewhat rapid. LUNGS: Clear to auscultation bilaterally without wheezes, crackles, or rhonchi. Respirations even and unlabored. ABDOMEN: Soft and nontender without palpable masses. Hepatojugular reflux is negative. EXTREMITIES: Warm and dry to touch without clubbing, cyanosis, or edema. NEUROLOGIC: Grossly intact and nonfocal. Gait was not assessed. DATABASE: A 12-lead EKG demonstrates 2:1 atypical atrial flutter with a ventricular rate of 98 beats per minute. QRS is narrow at 84 milliseconds. Bedside telemetry monitoring demonstrates ongoing atrial flutter, largely rate controlled. LABORATORY DATA: Laboratory results are pending. We will be checking TSH and free T4. IMPRESSION: 1. Late recurrent atypical atrial flutter, moderate rate controlled, but symptomatic with shortness of breath and dyspnea on exertion. 2. CHADS-VASc score of 3 on the basis of advancing age, female gender, and hypertension. Recently restarted on Eliquis 5 mg b.i.d. x3 doses so far. 3. Shortness of breath. 4. Atypical chest pain. RECOMMENDATIONS: I found Ms. Barreto has experienced a late recurrence of atypical atrial flutter with 2:1 AV jake conduction. She is symptomatic with shortness of breath, low energy levels, and increased fatigue. She also has some atypical chest pain episodes. She has had a negative stress test in the past 3 years. At this point, our recommendation would be to keep her n.p.o. after midnight and we will proceed with a MARC-guided cardioversion tomorrow. Given her recently restarting Eliquis for stroke prophylaxis, MARC is a required to rule out intracardiac thrombus before we can safely proceed with cardioversion. This was all discussed with the patient. Risks with MARC cardioversion include damage to dentition, sore throat, esophageal perforation, cardiac arrhythmias, bradycardia, and irritation at the defibrillator PAD sites. If able to successfully cardiovert, we will likely resume flecainide 50 mg p.o. b.i.d. for arrhythmia suppression and see her back in clinic in 6 weeks to further discuss arrhythmia management and treatment options. We briefly discussed treatment options today including cardioversion, antiarrhythmic agents, and redo ablation. She will likely be able to discharge immediately following the MARC cardioversion. If an atrial thrombus is seen, cardioversion will not be performed and she will need to continue oral anticoagulation with rate control alone until MARC rules out thrombus. Thank you for allowing us to participate in the care of this patient. We will get her scheduled for MARC cardioversion tomorrow and keep her n.p.o. after midnight. Job ID: [id number]
[2019-01-21 19:30] VITALS: BMI 29.5
[2019-01-21] MEDS: Apixaban 5 MG TAB PO SCH (21:56)
[2019-01-21] MEDS: Topiramate 25 MG TAB PO SCH (21:56)
--- NOTE | 2019-01-22 00:09 | HP ---
CHIEF COMPLAINT: Shortness of breath. HISTORY OF PRESENT ILLNESS: The patient is a very pleasant 73-year-old female with past medical history significant for hypothyroidism, hypertension, chronic asthma, managed by Dr. Alejo, and history of atrial arrhythmias including paroxysmal atrial fibrillation, status post pulmonary vein isolation, 06/05/2017, and redo pulmonary venous and left atrial ablation, 09/11/2017, who presented to the hospital with a 2-month history of shortness of breath. The patient states that her symptoms initially began in November, when she noted worsening shortness of breath with exertion. She denies any orthopnea or pedal edema. The patient's symptoms have continued to worsen. She was seen by her mechanical product engineer recently, who put her on a steroid regimen which she has taken for the past 4 days. The patient states that she feels jittery, however, it has not helped significantly with her shortness of breath. 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 Adams, on January 18, who noted atypical atrial flutter on her last EKG, and was referred back to Dr. Nelson for further treatment. She was placed on Eliquis at that time. The patient began experiencing some nonexertional chest discomfort with radiation into the neck along with some heartburn, which has worried her. Because of her host of symptoms, she presented to the ER for further workup and treatment. On arrival to the ER, her EKG does appear to show an atypical atrial flutter with a ventricular rate of 98 beats per minute. Her initial two troponins have been negative. At present time, the patient is resting comfortable and is not experiencing any chest discomfort. Prior cardiac workup as mentioned has included two prior ablations in 2016. She did also have a cardioversion after her 2nd ablation in September 2017, and was on flecainide for a brief time. She has done well since that time. She also had an MPI in 2016, which was negative for any reversible defect. PAST SURGICAL HISTORY: Direct current cardioversion, January 24, 2017. Pulmonary vein isolation ablation, June 05, 2017. Status post redo pulmonary venous and left atrial ablation, 09/11/2017. MARC and direct current cardioversion by Dr. Nelson, 10/09/2017. Hysterectomy in 1981. Tonsillectomy in 1949. SOCIAL HISTORY: The patient is a nonsmoker and nondrinker. She denies any illicit drug use. She lives at home with her . PAST MEDICAL HISTORY: 1. Chronic asthma, treated by Dr. Alejo. 2. Hypothyroidism. 3. Hypertension. 4. Atrial arrhythmias as described above. 5. Benign essential tremor. MEDICATIONS: 1. Cartia 120 mg CD one tablet p.o. daily. 2. Levothyroxine 150 mcg one tablet p.o. daily. 3. Vitamin D3 5000 international units one p.o. daily. 4. Amlodipine 5 mg tablet one p.o. daily. 5. Topiramate 50 mg tablet one p.o. b.i.d. 6. Eliquis 5 mg one p.o. b.i.d., of which she has had three total doses. ALLERGIES: ASPIRIN, ALMOND, AND PEANUT. FAMILY HISTORY: Noncontributory. REVIEW OF SYSTEMS: A 12-point review of systems is performed and is negative except that stated above in the HPI. PHYSICAL EXAMINATION: VITAL SIGNS: Blood pressure 138/69, pulse equals 100s, O2 saturation equals 95% on room air. GENERAL: This is a well-appearing, mildly obese female, sitting up in bed, resting comfortably, in no acute distress. NECK: Trachea midline. No JVD. No carotid bruits. CV: S1, S2. Regular rate, occasionally irregular, no appreciable murmurs, rubs, or gallops. LUNGS: Regular respiratory rate and pattern, clear to auscultation bilaterally, no appreciable wheezes or rhonchi at this time. ABDOMEN: Soft, mildly obese. Positive bowel sounds. Nontender. SKIN: Warm, dry. No rashes. EXTREMITIES: No appreciable edema. +2 DP pulses bilaterally. MUSCULOSKELETAL: No joint swelling or effusions. LABORATORY DATA: White blood cell count 10.7, hemoglobin 13.8, MCV 83.5, MCH 26.8. D-dimer less than 0.27. Sodium 142, potassium 3.3, BUN 28, creatinine 1.2. Calcium 10.4. Liver function enzymes within normal limits. Troponin is negative x3 at the time of this dictation. Lipase 19. BNP 85. TSH is low at 0.0377, free T4 1.46. Chest x-ray shows no active intrathoracic disease. ASSESSMENT: 1. Shortness of breath and some chest discomfort, which I suspect is largely secondary to her arrhythmia. Currently, the patient appears to be in atypical atrial flutter with controlled rate in the 90s. Her CHADS-VASc score is 3. 2. Paroxysmal atrial fibrillation. 3. Hypertension. 4. Hypothyroidism, but per thyroid panel today, appears to be borderline hyperthyroidism. 5. Benign essential tremor. 6. Chronic asthma. PLAN: Given the patient's symptoms, we will consult Dr. Nelson for further management of her arrhythmia. Continue Eliquis. Continue her rate control medications for now until further recommendations from EP team. We will adjust her thyroid medication accordingly, as this also could be contributing to her arrhythmia. The patient may also need a repeat nuclear stress test in the future if her symptoms do not completely resolve after management of her arrhythmia. Appreciate cardiology input. Job ID: [id number]
[2019-01-22 05:15] LABS: #Basophils 0.1 thou/uL (0.0-0.2); #Eosinphils 0.8 thou/uL (0.0-0.7); #Lymphocytes 3.6 thou/uL (1.20-3.40); #Monocytes 0.7 thou/uL (0.11-0.59); #Neutrophils 6.8 thou/uL (1.40-6.50); %Basophils 0.8 % (0.0-1.0); %Lymphocytes 30.1 % (21.0-51.0); %Monocytes 5.5 % (0.0-10.0); %Neutrophils 56.7 % (42.0-75.0); Hemoglobin 12.5 g/dL (12.0-16.0); Mean Corpuscular HGB CONC 33.1 g/dL (32.0-36.0); Mean Corpuscular Hemoglobin 27.9 pg (27.0-31.0); Mean Corpuscular Volume 84.3 fL (78.0-98.0); Mean Platelet Volume 8.2 fL (7.4-10.4); Platelet Count 303 thou/uL (130-400); RBC Distribution Width 12.9 % (11.5-14.5); Red Blood Cell (RBC) Count 4.48 mill/uL (4.20-5.40)
[2019-01-22 05:36] LABS: Anion Gap 11 mmol/L (10-20); BUN (Urea Nitrogen) 24 mg/dL (9.8-20.1); Calc. Creatinine Clearance 75 mL/min (70-130); Calcium 8.9 mg/dL (7.8-10.44); Carbon Dioxide 18 mmol/L (23-31); Cardiac Risk 3.9 (Less than 4.5); Chloride 115 mmol/L (98-107); Cholesterol 142 mg/dl (< 200 Desired); Estimated GFR-MDRD 66; Glucose 96 mg/dL (83-110); HDL Cholesterol 36 mg/dL (>60 Neg Risk); LDL Cholesterol, Calculated 72 mg/dL; Potassium 4.1 mmol/L (3.5-5.1); Sodium 140 mmol/L (136-145); Triglycerides 169 mg/dL (Less than 150)
[2019-01-22] MEDS ORDERED: Levothyroxine 150 MCG TAB PO SCH (06:00)
[2019-01-22] MEDS: Apixaban 5 MG TAB PO SCH (08:58)
[2019-01-22] MEDS: Topiramate 25 MG TAB PO SCH (08:58)
[2019-01-22] MEDS ORDERED: Amlodipine 5 MG TAB PO SCH (09:00)
--- NOTE | 2019-01-22 13:38 | OP ---
DATE OF PROCEDURE: 01/22/2019 PROCEDURE PERFORMED: Cardioversion. REFERRING PHYSICIAN: Breanna Adams MD. REASON FOR PROCEDURE: Ms. Barreto is a 73-year-old female with prior history of atrial arrhythmias, remote ablation about 2 years ago. She had a late recurrence of atypical atrial flutter. She underwent a MARC prior to procedure demonstrating no intracardiac clots, here for cardioversion. DESCRIPTION OF PROCEDURE: The patient has received propofol by Anesthesia specialist. After adequate level of sedation achieved, a 50 joule synchronized shock promptly converted the patient back to sinus rhythm. CONCLUSION: Successful cardioversion. PLAN: Resume oral anticoagulation and add flecainide. Consider repeat left atrial ablation procedure. The patient can be discharged home and with followup in 4 to 6 weeks in our office. Job ID: [id number]
[2019-01-22 16:09] VITALS: BP 144/69; TEMP 98.7
--- NOTE | 2019-01-22 16:24 | EKG ---
Test Reason : S/P CARDIOVERSION Blood Pressure : / mmHG Vent. Rate : 082 BPM Atrial Rate : 082 BPM P-R Int : 198 ms QRS Dur : 084 ms QT Int : 388 ms P-R-T Axes : 071 001 032 degrees QTc Int : 453 ms Normal sinus rhythm Nonspecific T wave abnormality Abnormal ECG When compared with ECG of 21-JAN-2019 09:52, (Unconfirmed) Nonspecific T wave abnormality has replaced inverted T waves in Anterior leads Confirmed by DR. David PALACIO ([id number]) on 01/22/2019 4:24:00 PM Referred By: KAMI Confirmed By:DR. David PALACIO
[2019-01-22] MEDS ORDERED: PROPOFOL 200 MG/20 ML VIAL ONE (17:08)
[2019-01-22] MEDS ORDERED: Lidocaine 1% PF 5 ML VIAL ONE (17:08)
--- NOTE | 2019-01-22 18:41 | DIS ---
DATE OF ADMISSION: 01/21/2019 DATE OF DISCHARGE: 01/22/2019 ALLERGIES: RAGWEED POLLEN, ASPIRIN, ALMOND, PEANUT, AND CEDAR. CHIEF COMPLAINT: Shortness of breath. FINAL DIAGNOSES: 1. Shortness of breath secondary to atypical atrial flutter. 2. Atypical atrial flutter, status post ablation x2 with recurrence, status post MARC and direct current cardioversion. CHADS-VASc score of 3, now currently in sinus rhythm. 3. Hypertension. 4. Hypothyroidism. 5. Benign essential tremor. 6. Chronic asthma. PROCEDURES PERFORMED: MARC and direct current cardioversion from atypical atrial flutter to sinus rhythm by Dr. Nelson. LABORATORY RESULTS: White blood cell count 10.7, hemoglobin 12.5, hematocrit 37.7, platelet count 303. D-dimer was less than 0.27. Sodium 140, potassium 4.1, chloride 115, creatinine 0.84, magnesium 2.2. Liver function tests within normal limits. Troponin negative x3. BNP 85.9. Cholesterol 142, LDL 72, HDL 36, lipase 19. Free T4 1.46, TSH 0.0377. Chest x-ray showed no active intrathoracic disease. MARC prior to cardioversion showed no evidence of left atrial appendage thrombus. CONSULTATIONS: Dr. Nelson, EP oracle manager. HOSPITAL COURSE: The patient is a very pleasant 73-year-old female with past medical history significant for hypothyroidism, hypertension, chronic asthma, managed by Dr. Alejo and history of atrial arrhythmias including paroxysmal atrial fibrillation, status PVI on 06/05/2017, and redo pulmonary venous and left atrial ablation on 09/11/2017, who presented to the hospital with a 2-month history of shortness of breath. Her symptoms initially began in November. She denies any orthopnea or pedal edema. She also complained of some chest discomfort that she describes as a burning sensation. She was seen by her baby sitter recently who put her on a steroid regimen which she is taking for the past 4 days, which have not significantly helped her symptoms. The patient was called by her primary oracle manager, Dr. Adams on 01/18, who noted atypical atrial flutter on her last EKG, and she was referred back to Dr. Nelson for further treatment. She was placed on Eliquis at that time. Her symptoms continued to worsen however, and so she presented to the ER for further workup and treatment. On arrival to the ER, her EKG does show atypical atrial flutter with a ventricular rate of 98 beats per minute. Her troponin was negative x2. Dr. Nelson was consulted, and she was taken today to the color laboratory technician for MARC and cardioversion. MARC showed no evidence of left atrial appendage thrombus, the patient was successfully cardioverted to sinus rhythm. She is seen back on the floor this afternoon. All of her symptoms have resolved. She denies any shortness of breath or chest pain at this time. She has ambulated without issue in her room. She denies any nausea or vomiting. PHYSICAL EXAMINATION: VITAL SIGNS: Temp 98.7, respirations 20, O2 saturation 99% on room air, blood pressure 144/69, pulse 88. GENERAL: The patient is an elderly female, mildly obese, in no acute distress. NECK: Trachea is midline. No lymphadenopathy. No carotid bruits. No JVD. CV: S1, S2. Regular rate and rhythm. No appreciable murmurs, rubs, or gallops. LUNGS: Regular respiratory rate and pattern, clear to auscultation bilaterally. There are no rhonchi, wheezes, or crackles noted. ABDOMEN: Positive bowel sounds, mildly obese, nontender. MUSCULOSKELETAL: No joint effusion or swelling. PERIPHERAL VASCULAR: The patient has no lower extremity pitting edema, +2 DP pulses bilaterally. NEUROLOGIC: The patient is awake and alert. Cranial nerves 2 through 12 are grossly intact. No focal deficits. SKIN: Warm and dry. No rashes, abrasions, or discoloration. CONDITION AT DISCHARGE: Stable. DISCHARGE MEDICATIONS: 1. Albuterol sulfate inhaler as needed. 2. Amlodipine 5 mg one tablet p.o. daily. 3. Vitamin D3 supplement 5000 unit tablet one tablet p.o. daily. 4. Diltiazem HCL 120 mg tablet extended release one tablet p.o. daily. 5. Topiramate 50 mg tablet one tablet p.o. b.i.d. 6. Eliquis 5 mg tablet one tablet p.o. b.i.d. 7. New medication will be flecainide 50 mg tablet, one tablet p.o. b.i.d. and levothyroxine 125 mcg tablet one tablet daily. DISCHARGE DISPOSITION: Home. PLAN: The patient will continue both flecainide and Eliquis per EP recommendations. Given her thyroid function panel, she is borderline hyperthyroid at this point, and we will titrate her levothyroxine down to 125 mcg daily. She will follow up with both Dr. Adams and Dr. Nelson. I suspect that her presenting symptoms were secondary to her arrhythmia, however, if chest pain returns, she may need repeat stress test. Job ID: [id number]
--- NOTE | 2019-01-22 22:34 | ECHO ---
REFERRING PHYSICIAN: Breanna Adams M.D. REASON FOR PROCEDURE: The patient is a pleasant 73-year-old female with prior history of atrial arrhythmias, prior ablation s in the past. She maintained sinus rhythm for over two years but now had recurrent atypical atrial f lutter. She was off anticoagulation at the time of admission. She is here for MARC to rule out intraca rdiac clots. PROCEDURE: The patient received propofol by Anesthesia specialist. After adequate level of sedation achieved, a standard transesophageal echocardiogram probe was passed into the esophagus without difficulty. Pat ient tolerated the procedure well, no complications noted. RESULTS: Left atrium is moderately enlarged about 4.6 cm in horizontal diameter. The appendage well visualize d contains no clots. The appendage velocities are reduced to about 25 cm per second. All four pulmon danya veins are well visualized. All of them had about 75 cm/s velocity. The interatrial septum is mode e of defect. The mitral valve has no significant regurgitation. The aortic valve has no significant regurgitation. Mild tricuspid regurgitation is seen. Pulmonary valve is not well visualized. The lef t ventricular function is preserved. Chamber size is normal. Right sided chambers are normal in size . Pericardial space without effusion. The visualized portion of ascending and descending aorta witho ut aneurysm, dissection and only mild to moderate adherent atheroma was seen in the descending aorta. CONCLUSION: 1. No intracardiac clots. 2. Normal left ventricular systolic function. 3. Mild tricuspid regurgitation. 4. Mild left atrial enlargement. 5. Descending aorta atheroma. PLAN: Proceed with cardioversion.
--- NOTE | 2019-01-23 12:04 | EKG ---
Test Reason : Blood Pressure : / mmHG Vent. Rate : 098 BPM Atrial Rate : 098 BPM P-R Int : 210 ms QRS Dur : 084 ms QT Int : 318 ms P-R-T Axes : 071 -05 014 degrees QTc Int : 405 ms Sinus rhythm with 1st degree A-V block Minimal voltage criteria for LVH, may be normal variant Nonspecific ST-T changes Abnormal ECG Confirmed by REBEKA TRAN DO ([id number]), acquisitions editor MARCIO WOOD ([id number]) on 01/23/2019 12:03:34 PM Referred By: Confirmed By:REBEKA TRAN DO
== END 2019-01-22 16:46 | disposition home or self-care (01) ==
LOC: ERS 09:45 → ERHOLD 13:01 → 2SW 18:12
PROVIDERS: ADMIT Family Medicine; ATTEND Family Medicine
PROC: 5A2204Z Restoration of Cardiac Rhythm, Single (ICD-10-PCS; principal; 2019-01-22)
PROC: B24BZZ4 Ultrasonography of Heart with Aorta, Transesophageal (ICD-10-PCS; 2019-01-22)
DX: I48.4 Atypical atrial flutter (principal); I07.1 Rheumatic tricuspid insufficiency; I70.0 Atherosclerosis of aorta; E03.9 Hypothyroidism, unspecified; I10 Essential (primary) hypertension; J45.909 Unspecified asthma, uncomplicated; G25.0 Essential tremor; I48.0 Paroxysmal atrial fibrillation; R07.89 Other chest pain; Z79.01 Long term (current) use of anticoagulants; Z79.899 Other long term (current) drug therapy; Z91.010 Allergy to peanuts; Z91.018 Allergy to other foods; Z91.048 Other nonmedicinal substance allergy status; Z88.8 Allergy status to other drugs, medicaments and biological substances; Z98.890 Other specified postprocedural states
CPT/HCPCS: 71045; 80048; 80061; 83690; 83735; 83880; 84439; 84484 ×2; 85025; 85379; 92960; 93005 ×2; 93312; 96361; 96365; 99285; G0378 ×2; 36415; 80053; 84443; 93010; J2001; J2704; J3475

== ENCOUNTER 2019-04-06 08:42 | Emergency (ER) | payer BC, MEDICARE ==
[2019-04-06] MEDS ORDERED: Ondansetron PF 4 MG/2 ML Vial ONE (09:32)
[2019-04-06] MEDS ORDERED: Morphine 4 MG/ML VIAL ONE (09:32)
[2019-04-06 09:51] LABS: #Basophils 0.1 thou/uL (0.0-0.2); #Eosinphils 0.7 thou/uL (0.0-0.7); #Lymphocytes 2.3 thou/uL (1.20-3.40); #Monocytes 0.5 thou/uL (0.11-0.59); #Neutrophils 6.7 thou/uL (1.40-6.50); %Basophils 0.6 % (0.0-1.0); %Eosinophils 7.2 % (0.0-10.0); %Lymphocytes 22.2 % (21.0-51.0); %Neutrophils 65.1 % (42.0-75.0); Hemoglobin 12.1 g/dL (12.0-16.0); Mean Corpuscular HGB CONC 33.3 g/dL (32.0-36.0); Mean Corpuscular Hemoglobin 28.4 pg (27.0-31.0); Mean Corpuscular Volume 85.4 fL (78.0-98.0); Mean Platelet Volume 9.1 fL (7.4-10.4); Platelet Count 313 thou/uL (130-400); RBC Distribution Width 13.4 % (11.5-14.5); Red Blood Cell (RBC) Count 4.24 mill/uL (4.20-5.40); White Blood Cell (WBC) Count 10.3 thou/uL (4.8-10.8)
--- NOTE | 2019-04-06 09:51 | RAD ---
XR Chest 1 View Portable HISTORY: Palpitations COMPARISON: 01/21/2019 FINDINGS: The heart size is normal. The lungs are well expanded without focal areas of consolidation, pneumothorax or pleural effusions. IMPRESSION: No radiographic evidence of acute cardiopulmonary process.
[2019-04-06 10:12] LABS: ALT (SGPT) 13 U/L (8-55); AST (SGOT) 11 U/L (5-34); Albumin 4.7 g/dL (3.4-4.8); Alkaline Phosphatase 109 U/L (40-150); Anion Gap 14 mmol/L (10-20); BUN (Urea Nitrogen) 13 mg/dL (9.8-20.1); Bilirubin, Total 0.6 mg/dL (0.2-1.2); CK (CPK) 77 U/L (29-168); Calc. Creatinine Clearance 0 mL/min (70-130); Carbon Dioxide 21 mmol/L (23-31); Chloride 112 mmol/L (98-107); Estimated GFR-MDRD 51; Globulin 2.3 g/dL (2.4-3.5); Glucose 136 mg/dL (83-110); Potassium 3.8 mmol/L (3.5-5.1); Sodium 143 mmol/L (136-145)
--- NOTE | 2019-04-06 11:06 | ULT ---
Focused vascular ultrasound of the left inguinal region: 04/06/2019 COMPARISON: None HISTORY: Left inguinal pain and cramping, evaluate for pseudoaneurysm following arterial puncture Findings: The left common femoral artery and vein are patent and demonstrate appropriate arterial and venous waveforms respectively. There is a small oblong fluid collection measuring 1.7 x 0.4 x 0.9 cm superficial to the vessels in the inguinal region without internal blood flow, suggesting a very s mall hematoma. No pseudoaneurysm is identified. IMPRESSION: No sonographic evidence of patent pseudoaneurysm.
== END 2019-04-06 11:43 | disposition home or self-care (01) ==
LOC: ERS 08:42
DX: I97.638 Postprocedural hematoma of a circulatory system organ or structure following other circulatory system procedure (principal); G89.18 Other acute postprocedural pain; R10.32 Left lower quadrant pain; I48.91 Unspecified atrial fibrillation; I10 Essential (primary) hypertension; Z79.899 Other long term (current) drug therapy; Z79.01 Long term (current) use of anticoagulants
CPT/HCPCS: 36415; 71045; 80053; 82550; 83605; 83880; 84484; 85025; 87040; 93005; 93926; 96361; 96374; 96375; J2270; J2405

== ENCOUNTER 2020-05-04 16:35 | Observation (INO) | payer MEDICARE, BC ==
--- NOTE | 2020-05-04 17:40 | RAD ---
CHEST ONE VIEW: 05/04/20 HISTORY: Chest pain. COMPARISON: 04/06/19 study. Heart size and mediastinum within normal limits. The lungs are clear of infiltrate. A loop recorder device is present. IMPRESSION: No active intrathoracic disease. POS: [facility]
[2020-05-04 18:01] LABS: #Eosinphils 0.4 thou/uL (0.0-0.7); #Lymphocytes 1.3 thou/uL (1.20-3.40); #Monocytes 0.5 thou/uL (0.11-0.59); #Neutrophils 8.5 thou/uL (1.40-6.50); %Basophils 0.3 % (0.0-1.0); %Eosinophils 4.1 % (0.0-10.0); %Lymphocytes 12.2 % (21.0-51.0); %Monocytes 4.5 % (0.0-10.0); %Neutrophils 78.9 % (42.0-75.0); Hemoglobin 12.7 g/dL (12.0-16.0); Mean Corpuscular HGB CONC 33.6 g/dL (32.0-36.0); Mean Corpuscular Hemoglobin 28.2 pg (27.0-31.0); Mean Corpuscular Volume 84.1 fL (78.0-98.0); Mean Platelet Volume 8.8 fL (7.4-10.4); Platelet Count 290 thou/uL (130-400); RBC Distribution Width 12.8 % (11.5-14.5); Red Blood Cell (RBC) Count 4.48 mill/uL (4.20-5.40); White Blood Cell (WBC) Count 10.8 thou/uL (4.8-10.8)
[2020-05-04 18:21] LABS: ALT (SGPT) 52 U/L (8-55); AST (SGOT) 111 U/L (5-34); Albumin 4.5 g/dL (3.4-4.8); Alkaline Phosphatase 132 U/L (40-110); Anion Gap 14 mmol/L (10-20); BUN (Urea Nitrogen) 9 mg/dL (9.8-20.1); Bilirubin, Total 0.3 mg/dL (0.2-1.2); Calc. Creatinine Clearance 0 mL/min (70-130); Calcium 9.2 mg/dL (7.8-10.44); Carbon Dioxide 26 mmol/L (23-31); Chloride 104 mmol/L (98-107); Estimated GFR-MDRD 63; Globulin 2.6 g/dL (2.4-3.5); Glucose 127 mg/dL (83-110); Lipase 20 U/L (8-78); Potassium 4.1 mmol/L (3.5-5.1); Protein, Total 7.1 g/dL (6.0-8.3); Sodium 140 mmol/L (136-145)
--- NOTE | 2020-05-04 22:05 | PDOC.HHP ---
Hospitalist HPI - History of Present Illness Chest pain History of Present Illness: Patient is a 74 year old female with PMH GERD, atrial fibrillation w/ ablation, hypothyroidism, HTN who presents to ED for substernal chest pain. Patient reports that chest pain began around 12 noon today, lasting until about 4pm. She also reports shortness of breath and dyspnea on exertion. She called her automotive collision estimator Dr Adams who recommended ED presentation. Here, symptoms have largely resolved. EKG sinus without acute ST changes. Troponin negative. Patient admitted for chest pain rule out. Hospitalist ROS - Review of Systems Constitutional: denies: fever, chills, sweats, weakness, malaise, other Eyes: denies: pain, vision change, conjunctivae inflammation, eyelid inflammation, redness, other ENT: denies: ear pain, ear discharge, nose pain, nose discharge, nose congestion , mouth pain, mouth swelling, throat pain, throat swelling, other Respiratory: reports: shortness of breath, SOB with excertion. denies: cough, dry, hemoptysis, pleuritic pain, sputum, wheezing, other Cardiovascular: reports: chest pain. denies: palpitations, orthopnea, paroxysmal noc. dyspnea, edema, light headedness, other Gastrointestinal: denies: nausea, vomiting, abdominal pain, diarrhea, constipation, melena, hematochezia, other Genitourinary: denies: dysuria, frequency, incontinence, hematuria, retention, other Musculoskeletal: denies: neck pain, shoulder pain, arm pain, back pain, hand pain, leg pain, foot pain, other Skin: denies: rash, lesions, joslyn, bruising, other Neurological: denies: weakness, numbness, incoordination, change in speech, confusion, seizures, other All other systems reviewed; all pertinent +/- noted in HPI/Subj - Medication Medications: amLODIPine TABLET : Strength - 5 mg : ORAL Patient Dose: 5 mg Oral once a day. diltiazem oral CAPSULE, EXT RELEASE 24 HR : Strength - 120 mg : ORAL Patient Dose: 120 mg Oral once a day. Synthroid oral TABLET : Strength - 150 mcg : ORAL Patient Dose: 150 mcg Oral once a day. topiramate TABLET : Strength - 50 mg : ORAL Patient Dose: 50 mg Oral 2 times a day. Eliquis TABLET : Strength - 5 mg : ORAL Patient Dose: 5 mg Oral 2 times a day. flecainide TABLET : Strength - 50 mg : ORAL Patient Dose: 1 tab(s) Oral 2 times a day. Vitamin D3 TABLET : Strength - 5,000 unit : ORAL Patient Dose: 1 tab(s) Oral once a day. traMADol TABLET : Strength - 50 mg : ORAL Patient Dose: 1 tab(s) Oral every 6 hours PRN. Hospitalist History - Past Medical History Other Medical History: GERD, HYPOTHYROIDISM, Past medical history includes cardiac history, arrhythmia , atrial fibrillation, Past medical history includes history of hypertension. - Past Surgical History Other Surgical History: heart ablations x3 (most recent 03/26/2019), 3 cardioversions, Surgical history of hysterectomy, Surgical history of tonsillectomy,. - Family History Other Family History: reviewed noncontributory in this 74 year old female - Social History Other Social History: Patient denies alcohol use, Patient denies drug use, Patient has no smoking history. - Exam General Appearance: NAD, awake alert Eye: PERRL, anicteric sclera ENT: normocephalic atraumatic, no oropharyngeal lesions, moist mucosa Neck: supple, symmetric, no JVD, no thyromegaly, no lymphadenopathy, no carotid bruit Heart: RRR, no murmur, no gallops, no rubs, normal peripheral pulses Respiratory: CTAB, no wheezes, no rales, no ronchi, normal chest expansion, no tachypnea, normal percussion Gastrointestinal: soft, non-tender, non-distended, normal bowel sounds, no palpable masses, no hepatomegaly, no splenomegaly, no bruit Extremities: no cyanosis, no clubbing, no edema Skin: normal turgor, no lesions, no rashes Neurological: cranial nerve grossly intact, normal sensation to touch, no weakness, no focal deficits, no new deficit Musculoskeletal: normal tone, normal strength, no muscle wasting Psychiatric: normal affect, normal behavior, A&O x 3 Hospitalist Results - Labs Result Diagrams: 05/04/20 17:45 05/04/20 17:45 Lab results: WBC 10.8 thou/uL (4.8-10.8) 05/04/20 17:45 Hgb 12.7 g/dL (12.0-16.0) 05/04/20 17:45 Hct 37.7 % (36.0-47.0) 05/04/20 17:45 MCV 84.1 fL (78.0-98.0) 05/04/20 17:45 Plt Count 290 thou/uL (130-400) 05/04/20 17:45 Neutrophils % 78.9 % (42.0-75.0) H 05/04/20 17:45 Sodium 140 mmol/L (136-145) 05/04/20 17:45 Potassium 4.1 mmol/L (3.5-5.1) 05/04/20 17:45 Chloride 104 mmol/L (98-107) 05/04/20 17:45 Carbon Dioxide 26 mmol/L (23-31) 05/04/20 17:45 BUN 9 mg/dL (9.8-20.1) L 05/04/20 17:45 Creatinine 0.87 mg/dL (0.6-1.1) 05/04/20 17:45 Glucose 127 mg/dL (83-110) H 05/04/20 17:45 Calcium 9.2 mg/dL (7.8-10.44) 05/04/20 17:45 Total Bilirubin 0.3 mg/dL (0.2-1.2) 05/04/20 17:45 AST 111 U/L (5-34) H 05/04/20 17:45 ALT 52 U/L (8-55) 05/04/20 17:45 Alkaline Phosphatase 132 U/L (40-110) H 05/04/20 17:45 Troponin I Less than 0.010 ng/mL (< 0.028) 05/04/20 17:45 Serum Total Protein 7.1 g/dL (6.0-8.3) 05/04/20 17:45 Albumin 4.5 g/dL (3.4-4.8) 05/04/20 17:45 Lipase 20 U/L (8-78) 05/04/20 17:45 Additional comment: VITAL SIGNS FriMay 04, 2020 20:45 FRANCESCO Jaquez Nazish BP: 159/83 Pulse: 68 Resp: 12 Pain: 4 O2 sat: 99 on (Room Air) Time: 05/04/2020 20:45. VITAL SIGNS FriMay 04, 2020 21:42 FRANCESCO Jaquez Nazish BP: 175/87 Pulse: 72 Resp: 15 Temp: 98.6 (Oral) Pain: 4 O2 sat: 99 on (Room Air) Time: 05/04/2020 21:42. - EKG Interpretation EKG: NSR rate 81 nonspecific T wave changes, no ST changes of acuity, 1st degree AVB MD 210 Hospitalist H&P A/P - Plan Plan: Patient is a 74 year old female with PMH GERD, atrial fibrillation w/ ablation, hypothyroidism, HTN who presents to ED for substernal chest pain. # chest pain - 4 hours today, self resolved, enzymes negative, ekg not STEMI, patient with history of afib and HTN but not CAD. - admit to telemetry, obs status - trend cardiac enzymes - stress test in AM - consult Dr Adams - PPI # history of atrial fibrillation - s/p ablation by Dr Nelson, last in January 2019, consult him if rhythm issues noticed on telemetry - resume home meds - observe on telemetry for afib recurrance as possible cause of sx # GERD - ppx ordered # hypothyroidism - resume synthroid, check labs dvt ppx: eliquis
[2020-05-04 22:41] LABS: Troponin I 0.014 ng/mL (< 0.028)
[2020-05-04] MEDS ORDERED: Ondansetron PF 4 MG/2 ML Vial IVP PRN (23:36)
[2020-05-04] MEDS ORDERED: Ondansetron ODT 4 MG TAB SL PRN (23:36)
[2020-05-05 00:25] VITALS: BMI 29.5
[2020-05-05] MEDS ORDERED: Nitroglycerin 0.4 MG TAB (25 Tab Bottle) SL PRN (00:40)
[2020-05-05 01:10] LABS: Troponin I 0.015 ng/mL (< 0.028)
[2020-05-05 05:31] LABS: Thyroid Stimulating Hormone 0.8511 uIU/mL (0.35-4.94)
[2020-05-05 05:43] LABS: Free T4 (Free Thyroxine) 0.95 ng/dL (0.70-1.48)
[2020-05-05] MEDS ORDERED: Levothyroxine 150 MCG TAB PO SCH (06:00)
[2020-05-05] MEDS ORDERED: Flecainide 50 MG TAB PO SCH (09:00)
[2020-05-05] MEDS ORDERED: Enoxaparin Sodium 40 MG/0.4 ML SYRINGE SC SCH (09:00)
[2020-05-05] MEDS ORDERED: Amlodipine 5 MG TAB PO SCH (09:00)
[2020-05-05] MEDS ORDERED: Apixaban 5 MG TAB PO SCH (09:00)
[2020-05-05] MEDS ORDERED: ADENOSINE 60 MG/20 ML VIAL ONE (09:55)
[2020-05-05 12:16] VITALS: BP 163/70; TEMP 98.2
--- NOTE | 2020-05-05 13:02 | NM ---
EXAM: CARDIAC SPECT HISTORY: Chest pain, atrial flutter, atrial fibrillation, hypertension, shortness of breath TECHNIQUE: A myocardial perfusion scan was performed using the single isotope 1 day protocol with hudson hnetium 99m sestamibi. [10 mCi] was injected intravenously for the rest exam followed by 30 mCi for the stress study. Pharmacologic stress with adenosine was monitored and interpreted by Dr. Ramon FINDINGS: A small fixed defect is seen in the distal anteroseptal wall with normal contractility and wall arelis on. This is likely artifactual. No reversible defects are seen. Gated SPECT LVEF: 81% Wall motion exam: Normal IMPRESSION: Normal myocardial perfusion scan
--- NOTE | 2020-05-05 14:26 | CON ---
DATE OF CONSULTATION: 05/05/2020 PRIMARY CARE DOCTOR: Eric Gonzalez MD. PRIMARY EMISSIONS TESTING AND REPAIR TECHNICIAN: Breanna Adams MD. PRIMARY ELECTRIC MOTOR ANALYST: Mike Nelson MD. REASON FOR CARDIOLOGY CONSULTATION: Chest pain. HISTORY OF PRESENT ILLNESS: Ms. Barreto is a very pleasant 74-year-old female with a significant history of atrial fibrillation with multiple attempts of cardioversion and ablation and LINQ placement in 03/2019, hypertension, chronic shortness of breath, and tremor. The patient presented to the emergency department for pressure and tightness at the epigastric area, which radiated to the bilateral chest under the breasts, which worsen with movement. The patient denied any shortness of breath, dizziness, lightheadedness, or any cardiac complaint. The patient started having the symptoms around 12:30 after the patient had diltiazem. She has not taken medicine for more than 2 weeks and/or yesterday is her 1st time in the last 2 weeks. She thought she started having indigestion, so she had some snack and her symptoms getting better. However, after the patient moved to the left side to reach her garbage can, the pain increased and she decided to come to the emergency department. She describes the pain as a pressure and a stabbing like pain to the epigastric area, which radiated to the bilateral chest under her breasts. The pain and discomfort has increased with movement and taking deep breath. It subsided when she is resting. The patient had a stress test done in 07/2019, with no ischemia with EF 59% at Dr. Adams' office. The patient had a MARC done in 01/2019 with cardioversion with normal left ventricular systolic function, mild tricuspid regurgitation, and mild left atrial enlargement. The patient had a chest x-ray today, shows no acute intrathoracic disease. The patient states the patient has not taken any pain medicine, such as Tylenol or ibuprofen for this symptom. PAST MEDICAL HISTORY: 1. GERD. 2. Hypothyroidism. 3. Atrial fibrillation. 4. Hypertension. 5. Chronic shortness of breath. 6. Chronic tremor. 7. Chronic asthma. SURGICAL HISTORY: 1. Hysterectomy. 2. Tonsillectomy. 3. MARC and cardioversion. 4. AFib ablation in January through March 2019. 5. LINQ placement in January 2019. 6. Also the patient had pulmonary vein isolation ablation in 2017 and redo pulmonary venous and left atrium ablation in 09/2017. FAMILY HISTORY: Noncontributory. SOCIAL HISTORY: The patient is . She has 2 children who are living well. She denies EtOH, tobacco, or illicit drug abuse. She has been exercised with physical therapist due to early this year, otherwise she is doing well. ALLERGIES: POLLEN, ASPIRIN, ALMOND, PEANUTS, AND CEDAR. CURRENT MEDICATIONS: 1. Vitamin D3 of 5000 unit once a day. 2. Eliquis 5 mg twice a day. 3. Amlodipine 5 mg once a day. 4. Albuterol 2 puffs every 6 hours p.r.n. 5. Diltiazem 120 mg twice a day. 6. Depakote 50 mg twice a day. 7. Primidone 50 mg twice a day. 8. Levothyroxine 150 mcg once a day. REVIEW OF SYSTEMS: Twelve-point review of systems negative unless otherwise mentioned in HPI. PHYSICAL EXAMINATION: VITAL SIGNS: Blood pressure 133/61, temperature 98.3, pulse is 64 and sinus rhythm, respiratory rate 20, and O2 saturation 97% with room air. GENERAL: The patient is alert and oriented x4, not in acute distress. HEAD: Normocephalic and atraumatic. EYES: Extraocular muscle movement intact. ENT AND MOUTH: Oral and nasal mucosa moist without lesion. NECK: Supple. Normal range of motion. No JVD. No bruits or thrill at the carotid arteries area. RESPIRATORY: Clear to auscultate bilaterally. No wheezing, rales, or rhonchi noted. CARDIOVASCULAR: Irregularly regular. Normal S1 and S2. There is no S3 or S4. No significant murmur, hives, or thrill noted. 2+ pulses in the bilateral upper and lower extremities. No edema in the lower extremities. ABDOMEN: Soft and nontender. No mass to palpate. Bowel sounds are present. MUSCULOSKELETAL: The patient is able to move all extremities. The patient denied claudication. SKIN: Warm and dry. No rash or ischemia noted. NEUROLOGIC: The patient is alert and oriented x4. Nonfocal. PSYCHIATRIC: The patient's mood is appropriate. LABORATORY DATA: WBC 10.8, hemoglobin 12.7, hematocrit 37.7, and platelet 290. Sodium 140, potassium 4.1, BUN 9, creatinine 0.87, AST 111 and ALT 52. Troponin is negative. TSH is at 0.8511 and T4 of 0.95. ASSESSMENT AND PLAN: 1. Atypical chest pain in adult. The patient's symptom today is possibly most likely from musculoskeletal etiology. However, also the patient's stress test in 07/2019 showed normal; however, due to the hypertension and complaint of shortness of breath, the patient is going to have another stress test to rule out any ischemia episode in her heart. If patient's stress test showed normal, most likely the patient is going to be discharged today. 2. Paroxysmal atrial fibrillation. The patient's heart rate is a sinus rhythm around 60 to 70 at this moment on the telemetry. She is on carvedilol, flecainide, Eliquis 5 mg twice a day and diltiazem 120 mg twice a day. 3. Hypertension. The patient's blood pressure has been stable at this moment with current medication. We would continue to monitor. 4. Hyperlipidemia she is on atorvastatin 40 mg once a day. 5. Mildly elevated liver function test. The patient's liver function level is mildly elevated. We would like to continue to monitor. Thank you very much for Cardiology Service to participate in the care of this patient. We will follow along the patient's care team and make further recommendations as appropriate. Job ID: [id number]
[2020-05-05] MEDS ORDERED: Atorvastatin Calcium 40 MG TAB PO SCH (21:00)
--- NOTE | 2020-05-05 22:00 | DIS ---
DATE OF ADMISSION: 05/04/2020 DATE OF DISCHARGE: 05/05/2020 DISCHARGE DIAGNOSES: 1. Chest pain noncardiac likely secondary to #2. 2. Gastroesophageal reflux disease. 3. Hypothyroidism. 4. Chronic atrial fibrillation, status post cardiac ablation on chronic anticoagulation with Eliquis. CONSULTATIONS: Dr. Adams with Cardiology Service. PERTINENT LABORATORY AND X-RAY FINDINGS: Basic metabolic profile within normal limits. Troponin I negative x3. TSH 0.85, free T4 of 0.95. CBC within normal limits. Portable chest x-ray dated 05/04/2020, showed no acute cardiopulmonary process. Cardiolite stress test dated 05/05/2020, showed no evidence for reversible ischemia with calculated ejection fraction of 81%. HOSPITAL COURSE: The patient was initially observed after presenting with substernal chest pain. The patient underwent serial cardiac biomarkers which were negative x3, proceeding to Cardiolite stress testing showing no evidence of reversible ischemia with calculated ejection fraction of 81%. The patient was evaluated by the Cardiology Service with recommendations for stress testing. Current recommendations are to pursue outpatient GI followup for potential endoscopy. We will initiate Protonix 40 mg daily for gastroesophageal reflux. Overall, the patient did remain clinically stable during the hospital course. I have examined the patient at the time of discharge and discussed followup instructions. The patient verbalizes understanding and agreement ready for discharge on 05/05/2020. DISCHARGE MEDICATIONS: 1. Ventolin HFA 2 puffs inhaled q.6 hours p.r.n. 2. Amlodipine 5 mg p.o. daily. 3. Vitamin D3 of 5000 units p.o. daily. 4. Diltiazem XT 120 mg p.o. b.i.d. 5. Levothyroxine 150 mcg p.o. daily. 6. Mysoline 50 mg p.o. b.i.d. 7. Eliquis 5 mg p.o. b.i.d. 8. Tambocor 50 mg p.o. q.12 hours. 9. Protonix 40 mg p.o. daily. FOLLOWUP: The patient will follow up with her primary care provider, Dr. Eric Gonzalez. The patient will follow up with Dr. Thomson with GI Service to consider outpatient endoscopy. CONDITION ON DISCHARGE: Stable. ACTIVITY: Ad-nirali. DIET: Heart healthy. CODE STATUS: Full. DISPOSITION: Home, 05/05/2020. Job ID: [id number]
--- NOTE | 2020-05-06 17:38 | EKG ---
Test Reason : Blood Pressure : / mmHG Vent. Rate : 081 BPM Atrial Rate : 081 BPM P-R Int : 210 ms QRS Dur : 084 ms QT Int : 386 ms P-R-T Axes : 002 005 -21 degrees QTc Int : 448 ms Sinus rhythm with 1st degree A-V block Abnormal ECG Confirmed by LALI IBRAHIM, BORIS Davey ([id number]), editor house organ MARCIO WOOD ([id number]) on 05/06/2020 5:38:05 PM Referred By: Confirmed By:BORIS ESCALERA MD
== END 2020-05-05 15:44 | disposition home or self-care (01) ==
LOC: ERS 16:35 → 2NO 21:15
PROVIDERS: ADMIT Internal Medicine; ATTEND Internal Medicine
DX: R07.89 Other chest pain (principal); K21.9 Gastro-esophageal reflux disease without esophagitis; I48.20 Chronic atrial fibrillation, unspecified; E03.9 Hypothyroidism, unspecified; I10 Essential (primary) hypertension; Z79.01 Long term (current) use of anticoagulants; Z79.899 Other long term (current) drug therapy; Z88.6 Allergy status to analgesic agent; Z88.8 Allergy status to other drugs, medicaments and biological substances; Z91.010 Allergy to peanuts; Z91.018 Allergy to other foods
CPT/HCPCS: 71045; 78452; 80053; 83690; 84439; 84443; 84484 ×3; 85025; 93005; 93017; 94760; 99285; A9500; 36415; G0378; J0153

== ENCOUNTER 2020-06-08 09:30 | Outpatient (CLI) | payer MEDICARE, BC ==
--- NOTE | 2020-06-08 11:50 | CT ---
CT ABDOMEN AND PELVIS WITH AND WITHOUT IV CONTRAST: HISTORY: A 74-year-old female with abdominal pain, mild right-side hydronephrosis on gallbladder ultrasound of 05/25/2020. FINDINGS: The lung bases are clear. Multiple cysts are seen in the liver. No calcified gallstones are seen. The spleen, pancreas, and adrenal glands are normal. A small hiatal hernia is noted. No free air, f ree fluid, or lymphadenopathy is seen in the abdomen or pelvis. The small bowel loops are not abnormally dilated. There is colonic diverticulosis. There are change s of hysterectomy. There are degenerative changes in the spine. Multiple bilateral parapelvic renal cysts re seen. Small low-density lesions in the renal cortices a re also likely cysts. No hydroureteral nephrosis is noted on either side. There is normal contrast excretion into the ureters and urinary bladder. There is a calcific density in the region of the lef t UVJ measuring 4 mm. This most likely represents a phlebolith and less likely a calculus since the left ureteric caliber is normal. No calculi are otherwise seen in the left kidney, urinary bladder, the right kidney, or right ureter. IMPRESSION: 1. No evidence of hydronephrosis. 2. Bilateral renal cysts (cortical and parapelvic). 3. Hepatic cysts. 4. Small hiatal hernia. 5. Colonic diverticulosis. 6. Left-sided phlebolith (more likely) versus 4 mm left ureterovesical junction calculus (less likel y). POS: OFF
== END 2020-06-08 09:31 | disposition home or self-care (01) ==
LOC: BICCT 09:30
PROVIDERS: ATTEND Internal Medicine Gastroenterology
DX: N13.30 Unspecified hydronephrosis (principal); N28.1 Cyst of kidney, acquired; K76.89 Other specified diseases of liver; K44.9 Diaphragmatic hernia without obstruction or gangrene; K57.30 Diverticulosis of large intestine without perforation or abscess without bleeding
CPT/HCPCS: 74177; 82565

== ENCOUNTER 2020-06-15 07:25 | Outpatient (CLI) | payer MEDICARE, BC, OTHER ==
[2020-06-15 16:16] LABS: #Basophils 0.1 thou/uL (0.0-0.2); #Eosinphils 0.9 thou/uL (0.0-0.7); #Monocytes 0.4 thou/uL (0.11-0.59); #Neutrophils 4.5 thou/uL (1.40-6.50); %Basophils 1.1 % (0.0-1.0); %Eosinophils 11.6 % (0.0-10.0); %Lymphocytes 24.9 % (21.0-51.0); %Monocytes 5.6 % (0.0-10.0); %Neutrophils 56.9 % (42.0-75.0); Hemoglobin 12.2 g/dL (12.0-16.0); Mean Corpuscular HGB CONC 32.2 g/dL (32.0-36.0); Mean Corpuscular Hemoglobin 27.2 pg (27.0-31.0); Mean Corpuscular Volume 84.6 fL (78.0-98.0); Mean Platelet Volume 9.4 fL (7.4-10.4); Platelet Count 327 thou/uL (130-400); RBC Distribution Width 12.7 % (11.5-14.5); Red Blood Cell (RBC) Count 4.48 mill/uL (4.20-5.40)
[2020-06-15 16:45] LABS: ALT (SGPT) 18 U/L (8-55); AST (SGOT) 15 U/L (5-34); Albumin 4.7 g/dL (3.4-4.8); Alkaline Phosphatase 120 U/L (40-110); Anion Gap 15 mmol/L (10-20); BUN (Urea Nitrogen) 12 mg/dL (9.8-20.1); Bilirubin, Direct 0.1 mg/dL (0.1-0.3); Bilirubin, Total 0.2 mg/dL (0.2-1.2); Calc. Creatinine Clearance 0 mL/min (70-130); Calcium 9.7 mg/dL (7.8-10.44); Carbon Dioxide 24 mmol/L (23-31); Chloride 106 mmol/L (98-107); Estimated GFR-MDRD 54; Glucose 103 mg/dL (83-110); Potassium 4.6 mmol/L (3.5-5.1); Protein, Total 7.4 g/dL (6.0-8.3); Sodium 140 mmol/L (136-145)
[2020-06-16 14:22] LABS: SARS-CoV-2 MS2 Positive; SARS-CoV-2 N Gene Negative; SARS-CoV-2 S Gene Negative; SARS-CoV-2 by NAA Not Detected (NotDetected); SARS-CoV-2 orf1ab Negative
== END 2020-06-15 07:26 | disposition home or self-care (01) ==
LOC: LABBT 07:25
PROVIDERS: ATTEND Surgery
DX: Z01.812 Encounter for preprocedural laboratory examination (principal); Z11.59 Encounter for screening for other viral diseases; K80.20 Calculus of gallbladder without cholecystitis without obstruction
CPT/HCPCS: 80048; 80076; 85025; U0003; 87635

== ENCOUNTER 2020-08-28 14:10 | Outpatient (CLI) | payer MEDICARE, BC, OTHER ==
[2020-08-29 11:39] LABS: SARS-CoV-2 MS2 Positive; SARS-CoV-2 N Gene Negative; SARS-CoV-2 S Gene Negative; SARS-CoV-2 by NAA Not Detected (NotDetected); SARS-CoV-2 orf1ab Negative
== END 2020-08-28 14:11 | disposition home or self-care (01) ==
LOC: LABBT 14:10
PROVIDERS: ATTEND Ophthalmology
DX: Z20.828 Contact with and (suspected) exposure to other viral communicable diseases (principal)
CPT/HCPCS: 87635; U0003

== ENCOUNTER 2020-09-01 11:00 | Day surgery (SDC) | payer MEDICARE, BC ==
[~2020-09-01 11:00] MED LIST changes: -Diprivan 20 ML ONE; +Phenylephrine 2.5% Ophth Soln 5 ML BOT EA EYE SCH; -Propofol 200 MG/20 ML VIAL ONE
[2020-09-01] MEDS ORDERED: Phenylephrine 2.5% Ophth Soln 5 ML BOT ONE (11:25)
== END 2020-09-01 12:40 | disposition home or self-care (01) ==
LOC: SDC 11:00
PROVIDERS: ATTEND Ophthalmology
PROC: 085J3ZZ Destruction of Right Lens, Percutaneous Approach (ICD-10-PCS; principal; 2020-09-01)
DX: H26.491 Other secondary cataract, right eye (principal); Z79.01 Long term (current) use of anticoagulants; Z79.899 Other long term (current) drug therapy; Z88.6 Allergy status to analgesic agent; Z88.8 Allergy status to other drugs, medicaments and biological substances; Z91.010 Allergy to peanuts; Z91.018 Allergy to other foods

== ENCOUNTER 2021-06-12 08:09 | Outpatient (CLI) | payer MEDICARE, BC ==
[2021-06-12] MEDS ORDERED: Iopamidol-370 76% 500 ML 1 ML ONE (16:17)
== END 2021-06-12 08:10 | disposition home or self-care (01) ==
LOC: BICCT 08:09
PROVIDERS: ATTEND Physician Assistant Medical
DX: R10.10 Upper abdominal pain, unspecified (principal); R19.7 Diarrhea, unspecified; K76.89 Other specified diseases of liver; N28.1 Cyst of kidney, acquired; K57.30 Diverticulosis of large intestine without perforation or abscess without bleeding; Z90.710 Acquired absence of both cervix and uterus
CPT/HCPCS: 74177; 82565; Q9967

== ENCOUNTER 2021-06-15 10:33 | Outpatient (CLI) | payer MEDICARE, BC | END 2021-06-15 10:34 | disposition home or self-care (01) | LOC: BICMAMMO 10:33 | PROVIDERS: ATTEND Internal Medicine | DX: Z12.31 Encounter for screening mammogram for malignant neoplasm of breast (principal); Z80.3 Family history of malignant neoplasm of breast | CPT/HCPCS: 77063; 77067 ==

== ENCOUNTER 2022-07-01 10:51 | Outpatient (CLI) | payer MEDICARE, BC ==
[2022-07-01 12:25] LABS: #Basophils 0.1 10x3/uL (0.0-0.2); #Eosinphils 0.4 10x3/uL (0.0-0.5); #Monocytes 0.4 10x3/uL (0.0-1.1); #Neutrophils 4.1 10x3/uL (1.5-8.4); %Basophils 0.9 % (0.0-2.0); %Eosinophils 6.2 % (0.0-6.0); %Lymphocytes 23.6 % (18.0-47.0); %Monocytes 6.5 % (0.0-10.0); %Neutrophils 62.5 % (40.0-75.0); Hemoglobin 12.6 g/dL (12.0-15.5); Mean Corpuscular HGB CONC 31.3 g/dL (32.0-36.0); Mean Corpuscular Hemoglobin 26.5 pg (27.0-33.0); Mean Corpuscular Volume 84.8 fl (81.6-98.3); Mean Platelet Volume 11.1 fl (7.4-10.4); Platelet Count 330 10x3/uL (150-450); RBC Distribution Width 12.8 % (11.5-14.5); Red Blood Cell (RBC) Count 4.75 10x6/uL (3.90-5.03); White Blood Cell (WBC) Count 6.5 10x3/uL (3.5-10.5)
[2022-07-01 12:35] LABS: ALT (SGPT) 16 U/L (8-55); AST (SGOT) 14 U/L (5-34); Albumin 4.9 g/dL (3.4-4.8); Alkaline Phosphatase 148 U/L (40-110); Anion Gap 14 mmol/L (10-20); BUN (Urea Nitrogen) 15 mg/dL (9.8-20.1); Bilirubin, Total 0.4 mg/dL (0.2-1.2); Calc. Creatinine Clearance 0 mL/min (70-130); Carbon Dioxide 25 mmol/L (23-31); Chloride 107 mmol/L (98-107); Estimated GFR 63; Globulin 2.7 g/dL (2.4-3.5); Glucose 94 mg/dL (83-110); Protein, Total 7.6 g/dL (5.8-8.1); Sodium 142 mmol/L (136-145)
== END 2022-07-01 10:52 | disposition home or self-care (01) ==
LOC: LABBT 10:51
PROVIDERS: ATTEND Internal Medicine Cardiovascular Disease
DX: Z01.812 Encounter for preprocedural laboratory examination (principal); Z20.822 Contact with and (suspected) exposure to COVID-19
CPT/HCPCS: 80053; 85025; 87811

== ENCOUNTER 2022-07-04 05:46 | Day surgery (SDC) | payer MEDICARE, BC ==
[2022-07-03 12:42] VITALS: BMI 26.9
== END 2022-07-04 07:15 | disposition home or self-care (01) ==
LOC: CCL 05:46
PROVIDERS: ATTEND Internal Medicine Cardiovascular Disease
DX: R94.39 Abnormal result of other cardiovascular function study (principal); Z53.9 Procedure and treatment not carried out, unspecified reason; Z79.01 Long term (current) use of anticoagulants; Z79.890 Hormone replacement therapy; Z79.899 Other long term (current) drug therapy; Z88.8 Allergy status to other drugs, medicaments and biological substances; Z91.018 Allergy to other foods; Z91.048 Other nonmedicinal substance allergy status

== ENCOUNTER 2022-07-05 05:49 | Day surgery (SDC) | payer MEDICARE, BC ==
[2022-07-04 09:26] VITALS: BMI 26.9
[2022-07-05] MEDS ORDERED: Lidocaine 1% MPF 2 ML VIAL ONE (06:25)
[2022-07-05] MEDS ORDERED: Nitroglycerin 100MG/250ML BOT 250 ML ONE (06:25)
[2022-07-05] MEDS ORDERED: Heparin 10,000 UNITS/ 10 ML VIAL ONE (06:25)
[2022-07-05] MEDS ORDERED: Verapamil 5 MG/2 ML VIAL ONE (06:25)
[2022-07-05] MEDS ORDERED: Fentanyl 100 MCG/2 ML VIAL ONE (07:01)
[2022-07-05] MEDS ORDERED: Midazolam HCl 2 mg/2 ml Vial ONE (07:01)
[2022-07-05 07:11] LABS: Cardiac Risk 4.9 (Less than 4.5)
== END 2022-07-05 11:02 | disposition home or self-care (01) ==
LOC: CCL 05:49
PROVIDERS: ATTEND Internal Medicine Cardiovascular Disease
PROC: 4A023N7 Measurement of Cardiac Sampling and Pressure, Left Heart, Percutaneous Approach (ICD-10-PCS; principal; 2022-07-05)
PROC: B2111ZZ Fluoroscopy of Multiple Coronary Arteries using Low Osmolar Contrast (ICD-10-PCS; 2022-07-05)
DX: R94.39 Abnormal result of other cardiovascular function study (principal); I25.10 Atherosclerotic heart disease of native coronary artery without angina pectoris; I10 Essential (primary) hypertension; I48.0 Paroxysmal atrial fibrillation; G20 Parkinson's disease; J45.909 Unspecified asthma, uncomplicated; I34.0 Nonrheumatic mitral (valve) insufficiency; E78.5 Hyperlipidemia, unspecified; Z87.891 Personal history of nicotine dependence; Z79.01 Long term (current) use of anticoagulants; Z79.890 Hormone replacement therapy; Z79.899 Other long term (current) drug therapy; Z88.8 Allergy status to other drugs, medicaments and biological substances; Z91.010 Allergy to peanuts; Z91.018 Allergy to other foods; Z91.048 Other nonmedicinal substance allergy status; Z95.818 Presence of other cardiac implants and grafts
CPT/HCPCS: 36415; 80061; 93458; C1769; C1894; J1644; J2250; J3010

== ENCOUNTER 2022-11-01 06:24 | Day surgery (SDC) | payer MEDICARE, BC ==
[2022-10-31 15:33] VITALS: BMI 26.9
[2022-11-01] MEDS ORDERED: Lidocaine 1% (PF) 30 ML VIAL ONE (07:58)
== END 2022-11-01 09:45 | disposition home or self-care (01) ==
LOC: SDC 06:24
PROVIDERS: ATTEND Internal Medicine Cardiovascular Disease
PROC: 0JPT32Z Removal of Monitoring Device from Trunk Subcutaneous Tissue and Fascia, Percutaneous Approach (ICD-10-PCS; principal; 2022-11-01)
PROC: 0JH632Z Insertion of Monitoring Device into Chest Subcutaneous Tissue and Fascia, Percutaneous Approach (ICD-10-PCS; 2022-11-01)
DX: Z45.09 Encounter for adjustment and management of other cardiac device (principal); I49.5 Sick sinus syndrome; I48.0 Paroxysmal atrial fibrillation; I34.0 Nonrheumatic mitral (valve) insufficiency; I10 Essential (primary) hypertension; G20 Parkinson's disease; J44.9 Chronic obstructive pulmonary disease, unspecified; Z87.891 Personal history of nicotine dependence; Z79.899 Other long term (current) drug therapy; Z88.8 Allergy status to other drugs, medicaments and biological substances
CPT/HCPCS: 33285; 33286; C1764; J2001